=== PATIENT | female | born 1980 | race Caucasian/White ===

== ENCOUNTER 2019-03-11 17:05 | Outpatient (REF) | payer MEDICAID, SELFPAY ==
--- NOTE | 2019-03-11 14:40 | PAPFT_PTH ---
PATIENT: Shellie Schmid LOC: [facility] U#:[id number] AGE/SX: 38/F ROOM: RE03/11/[address]: MARIA FERNANDA Dorman : 1980 BED: DIS: 03/11/2019 SPEC #: [id number] RECD: 03/11/19 18:17 STATUS: ERICA REQ #: [id number] OLAF: 03/11/19 14:[address]: Pauline Wagner DEPT: [facility] Cytology RECD BY: Ronda Laureano Tissues: 1 - CX/ENDOCX FOR PAP SMEARS Procedures: PAP THIN PREP/UVM Screening HPV DNA PROBE Comments: [id number] (CHLAMYDIA/GC)
[2019-03-12 13:30] LABS: Chlamydia Result Negative; GC Result Negative; Specimen Description SEE COMMENTS
[2019-03-29 17:43] LABS: HPV High Risk type 16, PCR Negative (Negative); HPV High Risk type 18, PCR Negative (Negative); HPV other High Risk types, PCR Negative (Negative); Specimen Source Cervical
== END 2019-03-11 17:25 ==
LOC: LBN 17:05
PROVIDERS: PCP Nurse Practitioner Family; Visit Provider Nurse Practitioner Family
DX: N89.8 Other specified noninflammatory disorders of vagina (principal); Z11.3 Encounter for screening for infections with a predominantly sexual mode of transmission; Z12.4 Encounter for screening for malignant neoplasm of cervix; Z11.51 Encounter for screening for human papillomavirus (HPV)
CPT/HCPCS: 87491; 87591; 87624; 88142; 87480; 87510; 87660

== ENCOUNTER 2019-04-28 09:19 | Emergency (ER) | payer MEDICAID, SELFPAY ==
[2019-04-28 09:22] VITALS: BP 147/93; PULSE 104; RESP 18; TEMP 36.7; O2SAT 98
--- NOTE | 2019-04-28 09:29 | W.ED.GENAD ---
Discharge Plan Disposition Patient Disposition: HOME Condition: Stable Discharge Details Chief Complaint: RashLesion Clinical Impression: Cellulitis, Skin change Primary Care Provider: Pauline Wagner ED Provider: Pepper Mckee Home Meds and New Rx's Prescriptions: New cephalexin [Keflex] 500 mg capsule 500 mg PO QID Qty: 39 RF: 0 Continued lisdexamfetamine 40 mg capsule 40 mg PO DAILY MDD 40mg Qty: 30 RF: 0 Discharge Instructions Instructions: Cephalexin (By mouth), Cellulitis (ED), Acute Rash (ED), Swollen Joint (ED) Additional Instructions: Please return immediately to the emergency department if you develop any new or worsening symptoms or if you become otherwise concerned. It is extremely important that you call as soon as possible to make an appointment to be seen in follow-up for this visit by your primary care doctor. Referrals: Pauline Wagner, PODIATRY TEACHER [Primary Care Provider] - Medical Decision Making Shellie Schmid is a 38 y/o woman with history of alcohol use disorder, hyperlipidemia, ADHD on Vyvanse who presented to the emergency department with slightly painful rash to the left medial lower leg since yesterday after noting a spider near her, and also with skin changes to the right knee without trauma or knee pain. On exam patient is well and nontoxic appearing. Heart rate of 104 in triage, otherwise benign cardiopulmonary exam. Right knee with ecchymotic type skin changes, mild effusion, full range of motion the knee without pain, no tenderness to palpation of any aspect of the knee. Examination of the left knee shows scant effusion without pain or skin changes. No posterior calf tenderness to palpation bilaterally. Approximately 1.5 cm area of erythema to the left medial lower leg with very mild central ulceration. No drainage or edema. Area is mildly tenderness to palpation. DP pulses are intact and symmetric. No other rashes noted. Concern for possible cellulitis to the left medial lower leg, unclear etiology of right knee edema and skin changes. Concern for metabolic/lyte derangement, hematologic versus rheumatologic pathology, other. Tachycardia is borderline, EKG shows rate of 100, may be secondary to Vyvanse plus caffeinated energy drink this morning versus other. Exam/history is not consistent with sepsis, septic arthritis, PE, ACS, endocarditis, TEN, SJS, acute bony pathology. Doubt acute emergent life-threatening process, doubt DVT. Plan for screening labs. Labs nondiagnostic, nonactionable. Tick panel pending. At this time plan to start antibiotics for possible mild cellulitis left medial lower leg, plan for outpatient follow-up for prepatellar effusion, skin changes to the knee and also for cellulitis. Patient was symptoms unchanged upon reassessment, no further tachycardia. I had a lengthy discussion with the patient regarding return to emergency department precautions including red flags for which to return, home care, and importance of outpatient follow-up with her PCP this week. Patient verbalized understanding the plan was amenable. All questions were answered. Patient was placed on care management list to assist without patient follow-up. Patient was discharged home with clear plan for outpatient follow-up. Medical Records Medical records reviewed: Yes I reviewed the patient's medical records. Lab Data Lab results reviewed: Yes I reviewed the patient's lab results. Labs: Laboratory Tests Range/Units 04/28/19 04/28/19 04/28/19 10:04 10:04 10:04 WBC (4.4-10.8) k/cumm 6.82 RBC (4.00-5.20) m/cumm 4.40 Hgb (12.0-15.5) g/dL 16.2 H Hct (36.0-46.0) % 45.4 MCV (80-95) fL 103.2 H MCH (27.0-33.0) pg 36.8 H MCHC (32.0-36.0) g/dL 35.7 RDW (11.7-14.6) % 12.1 Plt Count (130-400) x1000/uL 284 MPV (8.0-11.0) fL 10.0 Immature Gran % 0.1 Neutrophils % 57.1 Lymphocytes % 27.7 Monocytes % 13.2 Eosinophils % 1.5 Basophils % 0.4 Absolute Neutrophils (1.2-6.7) k/cumm 3.89 Absolute Lymphocytes (1.2-3.4) k/cumm 1.89 Absolute Monocytes (0.11-0.7) k/cumm 0.90 H Absolute Eosinophils (0.0-0.7) k/cumm 0.10 Absolute Basophils (0.0-0.2) k/cumm 0.03 ESR (0-20) mm/hr 2 PT (9.3-11.0) sec 9.8 INR (0.9-1.1) 1.0 APTT (21.0-31.4) sec 26.5 D-Dimer (<500) ng/mlFEU Sodium (136-145) mmol/L Potassium (3.5-5.1) mmol/L Chloride (98-107) mmol/L Carbon Dioxide (21.0-32.0) mmol/L Anion Gap (3-11) mmol/L BUN (7-18) mg/dL Creatinine (0.55-1.02) mg/dL Estimated GFR/1.73 m2 (mL/min/1.73m2) Glucose (70-100) mg/dL Calcium (8.5-10.1) mg/dL Total Bilirubin (0.2-1.0) mg/dL AST (15-37) U/L ALT (14-59) U/L Alkaline Phosphatase (46-116) U/L C-Reactive Protein (0.0-0.3) mg/dL < 0.05 Total Protein (6.4-8.2) g/dL Albumin (3.4-5.0) g/dL TSH (0.36-3.74) uIU/mL 2.92 Urine Color (Yellow) Urine Clarity (Clear) Urine pH (5-8) Ur Specific [place] (1.005-1.025) Urine Protein (Negative) mg/dL Urine Ketones (Negative) mg/dL Urine Blood (Negative) Urine Nitrite (Negative) Urine Bilirubin (Negative) Urine Urobilinogen (Up TO 0.2) EU/dL Ur Leukocyte Esterase (Negative) Urine RBC (0-2) Urine WBC (0-5) HPF Ur Epithelial Cells (Negative) HPF Urine Crystals (Negative) HPF Urine Bacteria (Negative) HPF Urine Casts (Negative) LPF Urine Mucus (Negative) Ur Culture Indicated? Urine Glucose (Negative) mg/dL Range/Units 04/28/19 04/28/19 04/28/19 10:04 10:04 11:04 WBC (4.4-10.8) k/cumm RBC (4.00-5.20) m/cumm Hgb (12.0-15.5) g/dL Hct (36.0-46.0) % MCV (80-95) fL MCH (27.0-33.0) pg MCHC (32.0-36.0) g/dL RDW (11.7-14.6) % Plt Count (130-400) x1000/uL MPV (8.0-11.0) fL Immature Gran % Neutrophils % Lymphocytes % Monocytes % Eosinophils % Basophils % Absolute Neutrophils (1.2-6.7) k/cumm Absolute Lymphocytes (1.2-3.4) k/cumm Absolute Monocytes (0.11-0.7) k/cumm Absolute Eosinophils (0.0-0.7) k/cumm Absolute Basophils (0.0-0.2) k/cumm ESR (0-20) mm/hr PT (9.3-11.0) sec INR (0.9-1.1) APTT (21.0-31.4) sec D-Dimer (<500) ng/mlFEU 205 Sodium (136-145) mmol/L 139 Potassium (3.5-5.1) mmol/L 4.0 Chloride (98-107) mmol/L 104 Carbon Dioxide (21.0-32.0) mmol/L 26.5 Anion Gap (3-11) mmol/L 8.5 BUN (7-18) mg/dL 9 Creatinine (0.55-1.02) mg/dL 0.81 Estimated GFR/1.73 m2 (mL/min/1.73m2) >= 60.00 Glucose (70-100) mg/dL 104 H Calcium (8.5-10.1) mg/dL 9.0 Total Bilirubin (0.2-1.0) mg/dL 0.3 AST (15-37) U/L 29 ALT (14-59) U/L 35 Alkaline Phosphatase (46-116) U/L 73 C-Reactive Protein (0.0-0.3) mg/dL Total Protein (6.4-8.2) g/dL 7.5 Albumin (3.4-5.0) g/dL 4.2 TSH (0.36-3.74) uIU/mL Urine Color (Yellow) Yellow Urine Clarity (Clear) Clear Urine pH (5-8) 8.5 H Ur Specific [place] (1.005-1.025) 1.015 Urine Protein (Negative) mg/dL Negative Urine Ketones (Negative) mg/dL Negative Urine Blood (Negative) Trace-intact H Urine Nitrite (Negative) Negative Urine Bilirubin (Negative) Negative Urine Urobilinogen (Up TO 0.2) EU/dL 0.2 Ur Leukocyte Esterase (Negative) Negative Urine RBC (0-2) 3-5 H Urine WBC (0-5) HPF 0-2 Ur Epithelial Cells (Negative) HPF Moderate Urine Crystals (Negative) HPF Negative Urine Bacteria (Negative) HPF Few Urine Casts (Negative) LPF Negative Urine Mucus (Negative) Trace Ur Culture Indicated? No Urine Glucose (Negative) mg/dL Negative ECG Data Attestation: I personally reviewed and interpreted this ECG (s) as follows: Interpretation: EKG shows sinus rhythm at 100, normal axis, ST changes present on prior 2007 with T wave flattening V2 increased from prior, no STEMI, nondiagnostic EKG HPI General Mode of arrival: ambulatory. Date/Time Provider Initiated Documentation: 04/28/19 09:29. Limitations to Documentation: no limitations. Information obtained by: patient, RN notes reviewed and old records reviewed. HPI Narrative: Shellie Schmid is a 38 y/o woman with history of alcohol use disorder, hyperlipidemia, ADHD on Vyvanse presenting to the emergency department with rash. Patient reports that yesterday she was cleaning an [employer] apartment when she noticed a spider crawling away from her. She was wearing short pants and socks, and her ankles were exposed. Patient reports that she later noticed a red pamela on the inside of her left lower leg. Patient reports that redness seems to be increasing since yesterday, and she has mild pain at the site. Patient also reports that 2 days ago she noticed some color changes over her right knee. Patient reports that her knee has seemed to have increasing swelling since she first noticed the color changes, and the knee now appears bruised. She denies any trauma or pain. Has never had similar symptoms in the past. Patient reports that she drinks 1 or 2 alcoholic drinks every other night, although occasionally does binge drink. She reports that her drinking has been under control recently and has not increased. On review of systems, patient does note that she has had dark tarry stools for a long time. This has not been evaluated in the past. She denies any pain other than as above, any other rash, fevers, vomiting, diarrhea, cough, shortness of breath, numbness, weakness. Has been eating and drinking as usual. No recent travel, no recent illness. Patient is an every day smoker, she denies recreational drug use. Patient reports that she drank an energy drink this morning and also took her Vyvanse. Related Data Home Medications Medication Instructions Recorded Confirmed lisdexamfetamine 40 mg capsule 40 mg PO DAILY #30 cap MDD 40mg 04/02/19 04/28/19 cephalexin [Keflex] 500 mg PO QID #39 cap 04/28/19 Previous Rx's Medication Instructions Recorded lisdexamfetamine 40 mg capsule 40 mg PO DAILY #30 cap MDD 40mg 04/02/19 cephalexin [Keflex] 500 mg PO QID #39 cap 04/28/19 Allergies Allergy/AdvReac Type Severity Reaction Status Date / Time No Known Allergies Allergy Verified 03/11/19 13:50 General Stated Complaint: RashLesion JOSE: 4 Review of Systems Narrative: Constitutional: denies fevers Eyes: denies eye pain ENT: denies facial pain, dental pain, sore throat Cardiovascular: denies chest pain Respiratory: denies SOB, cough GI: denies abdominal pain, vomiting, diarrhea : denies flank pain MSK: denies back pain, neck pain, arthralgias, myalgias Skin: reports rashes as per HPI, right knee swelling as per HPI Neuro: denies headaches, numbness, weakness [facility] Medical History Abnormal Papanicolaou smear of cervix with positive human papilloma virus (HPV) test (Inactive) 4/15--LGSIL, +HPV 2/17--LGSIL, +HPV 4/17--Colposcopy=CINI 6/18--negative pap and hpv 9/19--Negative Pap, +HPV Alcohol use disorder (Inactive) Attention deficit hyperactivity disorder (ADHD) (Chronic) Cigarette smoker (Chronic) Depressive disorder (Inactive) Hyperlipidemia (Chronic) Family History (Updated 03/12/19 @ 09:22 by Yasmani Lloyd) Mother Essential hypertension Father Alcohol abuse Asthma Substance abuse Sister Depression Brother Alcohol abuse Substance abuse Daughter No problems noted. Daughter No problems noted. Maternal Grandfather , age 88 ALS (amyotrophic lateral sclerosis) Maternal Grandmother , age 67 Hyperlipidemia Cancer Paternal Grandfather , age 88 Prostate cancer Paternal Grandmother , age 89 Heart disease Sister No problems noted. Social History Smoking/Tobacco Use Status: Current every day Tobacco: How many years used: 17 Quit status: considering quitting Alcohol Intake: current Alcohol Intake frequency: 0-2 drinks per day Alcohol type: wine Drug use: Never Substance use type: does not use Caregiver/Support person: No Household members: children Housing: house Communication Needs: None Do you need help understanding health information?: Never Pets and animals: Yes Pets and animals: cat(s) and dog(s) Sexually active: Yes Do you think of yourself as: straight/heterosexual Current gender identity: female What is your relationship status?: never How often do you talk on the phone with friends or family?: twice per week How often do you get together with friends or relatives?: once per week How often do you attend spiritism or adventist services?: decline to answer Do you belong to any clubs or organized social groups?: no Panel score (0-1 are the most socially isolated patients): 1 What type of physical activity do you participate in: decline to answer Duration: < 15 minutes/day Frequency: decline to answer Cheryl/Jehovah'S Witness: Religious Special cheryl needs: No Seatbelt use: always Helmet use: Yes Helmet use: always Drive intox or ride w/intox airport shuttle driver: No Do you feel safe at home: Yes Do you feel safe in your relationship?: Yes Exam Narrative Exam Narrative: Constitutional: well and [id number], pleasant, conversing normally HENT: head atraumatic/normocephalic/normal inspection, mucous membranes moist, no intraoral lesions Eyes: conjunctiva normal, sclera normal, pupils 3mm b/l Neck: no stridor, normal ROM, trachea midline Chest: normal inspection Resp: normal work of breathing, LCTAB Cardio: normal rate, normal rhythm, no murmur appreciated GI: abdomen soft, non-tender, non-distended, rectal exam normal, hemoccult negative Back: normal inspection, no rash Skin: warm, dry, normal color, no rash Neuro: alert, not altered, grossly non-focal, normal tone Ext: Right knee with ecchymotic type skin changes, mild prepatellar effusion, full range of motion the knee without pain, no tenderness to palpation of any aspect of the knee including popliteal region. Examination of the left knee shows scant prepatellar effusion without pain with palpation, tenderness, or skin changes. No posterior calf tenderness to palpation bilaterally. Approximately 1.5 cm area of erythema to the left medial lower leg with very mild central ulceration. No drainage or edema. Area is mildly tenderness to palpation. DP pulses are intact and symmetric. No other rashes noted. Psych: normal mood, normal affect, normal behavior Course Vital Signs Vital signs: Vital Signs Temperature 36.7 C 04/28/19 09:22 Pulse 104 H 04/28/19 09:22 Respiratory Rate 18 04/28/19 09:22 Blood Pressure 147/93 H 04/28/19 09:22 Pulse Oximetry 98 04/28/19 09:22 Temperature 36.7 C 04/28/19 09:22 Temperature Source Skin 04/28/19 09:22 Pulse 104 H 04/28/19 09:22 Respiratory Rate 18 04/28/19 09:22 Blood Pressure 147/93 H 04/28/19 09:22 Blood Pressure Position Sitting 04/28/19 09:22 Pulse Oximetry 98 04/28/19 09:22 Oxygen Delivery Method Room Air 04/28/19 09:22 Oxygen Flow Rate 0 04/28/19 09:22
[2019-04-28 10:12] LABS: Abs Immature Grans 0.01 k/cumm (0.0-0.09); Absolute Basophil Count 0.03 k/cumm (0.0-0.2); Absolute Lymphocyte Count 1.89 k/cumm (1.2-3.4); Absolute Neutrophil Count 3.89 k/cumm (1.2-6.7); Basophils % 0.4; Eosinophils % 1.5; HCT 45.4 % (36.0-46.0); HGB 16.2 g/dL (12.0-15.5); Immature Grans % 0.1; Lymphocytes % 27.7; Mean Corp. HGB Concentration 35.7 g/dL (32.0-36.0); Mean Corpuscular Hemoglobin 36.8 pg (27.0-33.0); Mean Corpuscular Volume 103.2 fL (80-95); Monocytes % 13.2; Neutrophils % 57.1; Platelet Count 284 x1000/uL (130-400); RBC Distribution Width 12.1 % (11.7-14.6); White Blood Cell Count 6.82 k/cumm (4.4-10.8)
[2019-04-28 10:23] LABS: ALT 35 U/L (14-59); AST 29 U/L (15-37); Albumin 4.2 g/dL (3.4-5.0); Alkaline Phosphatase 73 U/L (46-116); Anion Gap 8.5 mmol/L (3-11); BUN 9 mg/dL (7-18); Bilirubin, Total 0.3 mg/dL (0.2-1.0); CO2 26.5 mmol/L (21.0-32.0); CREATININE 0.81 mg/dL (0.55-1.02); Chloride 104 mmol/L (98-107); Glucose 104 mg/dL (70-100); Sodium 139 mmol/L (136-145); Total Protein 7.5 g/dL (6.4-8.2)
[2019-04-28 10:33] LABS: PTT Activated 26.5 sec (21.0-31.4); Prothrombin Time 9.8 sec (9.3-11.0)
[2019-04-28 10:41] LABS: D-Dimer 205 ng/mlFEU (<500)
[2019-04-28 10:42] LABS: C-Reactive Protein < 0.05 mg/dL (0.0-0.3); TSH (W/Ref FT4) 2.92 uIU/mL (0.36-3.74)
[2019-04-28 10:53] LABS: ESR 2 mm/hr (0-20)
[2019-04-28 11:11] VITALS: BP 118/74; PULSE 94; RESP 18; TEMP 36.9; O2SAT 100
[2019-04-28 11:16] LABS: Bilirubin Negative (Negative); Blood Trace-intact (Negative); Clarity Clear (Clear); Glucose Negative (Negative); Ketones Negative (Negative); Leukocyte Esterase Negative (Negative); Nitrite Negative (Negative); Specific Gravity 1.015 (1.005-1.025); Urobilinogen 0.2 EU/dL (Up TO 0.2); pH 8.5 (5-8)
[2019-04-28] MEDS: Ibuprofen 400 MG TAB (11:16)
[2019-04-28 11:27] LABS: Bacteria Few HPF (Negative); C & S Indicated? No; Casts Negative LPF (Negative); Crystals Negative HPF (Negative); Epithelial Cells Moderate HPF (Negative); Mucus Trace (Negative); WBC 0-2 HPF (0-5)
[2019-04-28] MEDS: Cephalexin 500 MG CAP PO (12:03)
[2019-04-28 12:13] VITALS: BP 116/72; PULSE 87; RESP 18; TEMP 37; O2SAT 100
[2019-04-29 10:10] LABS: Lyme Ab w Rflx to Lyme Confirm Negative
[2019-04-30 22:17] LABS: Anaplasma phagocytophilum Negative (Negative); B. miyamotoi PCR Negative (Negative); Babesia divergens/MO-1 Negative (Negative); Babesia duncani Negative (Negative); Babesia microti Negative (Negative); Ehrlichia chaffeensis Negative (Negative); Ehrlichia ewingii/canis Negative (Negative); Ehrlichia muris eauclairensis Negative (Negative)
== END 2019-04-28 12:23 | disposition home or self-care (01) ==
PROVIDERS: Emergency Provider Student in an Organized Health Care Education/Training Program; PCP Nurse Practitioner Family
DX: L03.116 Cellulitis of left lower limb (principal); R23.4 Changes in skin texture
CPT/HCPCS: 36415; 80053; 81025; 85652; 87798; 93005; 99284; 81003; 81015; 84443; 85025; 85379; 85610; 85730; 86140; 86618; 93010

== ENCOUNTER 2019-08-02 14:26 | Emergency (ER) | payer MEDICAID, SELFPAY ==
[2019-08-02 14:30] VITALS: BP 149/108; PULSE 104; RESP 20; TEMP 36.6; O2SAT 99
--- NOTE | 2019-08-02 14:54 | ED.GENADUL_ITS ---
Discharge Plan Disposition Patient Disposition: HOME Condition: Improving Discharge Details Chief Complaint: Chest/Rib Clinical Impression: Acute bronchitis with bronchospasm Primary Care Provider: Pauline Wagner ED Provider: Eladio Staton Home Meds and New Rx's Prescriptions: No Action bupropion HCl 300 mg tablet extended release 24 hr 300 mg PO DAILY Qty: 90 RF: 4 lisdexamfetamine 40 mg capsule 40 mg PO DAILY MDD 40mg Qty: 30 RF: 0 Discharge Instructions Instructions: Acute Bronchitis (ED) Medical Decision Making 39-year-old female presents from home with days of respiratory illness including cough, congestion, production of sputum. She 2 days ago reports right sided chest discomfort that is worse with breathing and fairly abrupt in onset. She does have hormone impregnated IUD. She is afebrile, oxygenating normally, exam reveals right midlung field rhonchi/expiratory wheeze. She is slightly tachycardic and hypertensive. Differential diagnosis would include bronchitis, pneumonia, must exclude PE. Patient given 1 L of fluid, referred for chest x- ray and blood work. Labs with reassuring CBC and chemistries, d-dimer negative at 256. Consistent with bronchitis and mild bronchospasm. Discussed with her cessation of tobacco use or at least minimizing. She is given an albuterol inhaler to be used during times of illness and placed on a course of antibiotics. Lab Data Lab results reviewed: Yes I reviewed the patient's lab results. Labs: Laboratory Results - last 24 hr 08/02/19 08/02/19 15:45 15:45 WBC 9.66 RBC 4.39 Hgb 15.9 H Hct 45.4 MCV 103.4 H MCH 36.2 H MCHC 35.0 RDW 12.5 Plt Count 269 MPV 10.0 Immature Gran % 0.2 Neutrophils % 72.8 Lymphocytes % 18.3 Monocytes % 8.2 Eosinophils % 0.3 Basophils % 0.2 Absolute Neutrophils 7.03 H Absolute Lymphocytes 1.77 Absolute Monocytes 0.79 H Absolute Eosinophils 0.03 Absolute Basophils 0.02 Sodium 141 Potassium 3.7 Chloride 103 Carbon Dioxide 26.5 Anion Gap 11.5 H BUN 14 Creatinine 0.81 Estimated GFR/1.73 m2 >= 60.00 Glucose 98 Calcium 8.7 Total Bilirubin 0.3 AST 20 ALT 23 Alkaline Phosphatase 85 Total Protein 7.3 Albumin 4.1 HPI General Mode of arrival: ambulatory . Date/Time Provider Initiated Documentation: 08/02/19 14:49 . Limitations to Documentation: no limitations . Information obtained by: patient . History of Present Illness 39 year old F presents to the emergency department with the chief complaint of Cough, congestion, right-sided chest pain, Quality is described as aching, and is localized to the right. Patient reports no radiation. Patient started experiencing this day(s) and it has been intermittent. No relieving factors improve symptom(s), Other factors that worsen symptoms (Deep breath) . Patient notes cough and other (Production of sputum). Patient did receive the following treatments prior to arrival, NSAID Related Data Home Medications Medication Instructions Recorded Confirmed bupropion HCl 300 mg 24 hr tablet, 300 mg PO DAILY #90 tab 05/31/19 extended release lisdexamfetamine 40 mg capsule 40 mg PO DAILY #30 cap MDD 40mg 07/30/19 08/02/19 Previous Rx's Medication Instructions Recorded bupropion HCl 300 mg 24 hr tablet, 300 mg PO DAILY #90 tab 05/31/19 extended release lisdexamfetamine 40 mg capsule 40 mg PO DAILY #30 cap MDD 40mg 07/30/19 Allergies Allergy/AdvReac Type Severity Reaction Status Date / Time No Known Allergies Allergy Verified 04/30/19 13:48 General Stated Complaint: Chest/Rib JOSE: 3 Review of Systems Narrative: 1 pack a day smoker. No inhalers. No travel. Denies lower extremity pain or swelling. [facility] Medical History Abnormal Papanicolaou smear of cervix with positive human papilloma virus (HPV) test (Inactive) 15--LGSIL, +HPV 2/17--LGSIL, +HPV 4/17--Colposcopy=CINI 6/18--negative pap and hpv 9/19--Negative Pap, +HPV Alcohol use disorder (Inactive) Attention deficit hyperactivity disorder (ADHD) (Chronic) Cigarette smoker (Chronic) Depressive disorder (Inactive) Hyperlipidemia (Chronic) Family History Mother Essential hypertension Father Alcohol abuse Asthma Substance abuse Sister Depression Brother Alcohol abuse Substance abuse Daughter No problems noted. Daughter No problems noted. Maternal Grandfather , age 88 ALS (amyotrophic lateral sclerosis) Maternal Grandmother , age 67 Hyperlipidemia Cancer Paternal Grandfather , age 88 Prostate cancer Paternal Grandmother , age 89 Heart disease Sister No problems noted. Social History Smoking/Tobacco Use Status: Current every day Tobacco: How many years used: 17 Quit status: considering quitting Alcohol Intake: current Alcohol Intake frequency: 0-2 drinks per day Alcohol type: wine Drug use: Never Substance use type: does not use Caregiver/Support person: No Household members: children Housing: house Communication Needs: None Do you need help understanding health information?: Never Pets and animals: Yes Pets and animals: cat(s) and dog(s) Sexually active: Yes Do you think of yourself as: straight/heterosexual Current gender identity: female What is your relationship status?: never How often do you talk on the phone with friends or family?: twice per week How often do you get together with friends or relatives?: once per week How often do you attend anabaptism or mormonism services?: decline to answer Do you belong to any clubs or organized social groups?: no Panel score (0-1 are the most socially isolated patients): 1 What type of physical activity do you participate in: decline to answer Duration: < 15 minutes/day Frequency: decline to answer Cheryl/Religious: Muslim Special cheryl needs: No Seatbelt use: always Helmet use: Yes Helmet use: always Drive intox or ride w/intox national dedicated truck driver: No Do you feel safe at home: Yes Do you feel safe in your relationship?: Yes Exam Narrative Exam Narrative: GEN: awake, alert, oriented 3. Pleasant, well groomed, interactive. HEAD: Normocephalic, atraumatic ENT: Mucous membranes moist, oropharynx unremarkable, External ear exam unremarkable EYES: PERRL, EOMI NECK: Full ROM, no JANE, no menigismus CHEST/RESP: Nontender, right side midlung field rhonchi with wheeze CARDIOVASCULAR: Borderline tachycardia, RRR, no murmur, rub laura. 2+ Rad pulse bilateral ABDOMEN: Soft, nontender, no mass. +Bowel sounds EXT: Full ROM, no edema, no rash Neuro: Grossly normal neurologic exam, conversant, interactive. Psych: Speech fluent, thoughts congruent, affect normal Course Vital Signs Vital signs: Vital Signs Temperature 36.6 C 08/02/19 14:30 Pulse 104 H 08/02/19 14:30 Respiratory Rate 20 08/02/19 14:30 Blood Pressure 149/108 H 08/02/19 14:30 Pulse Oximetry 99 08/02/19 14:30 Temperature 36.6 C 08/02/19 14:30 Temperature Source Skin 08/02/19 14:30 Pulse 104 H 08/02/19 14:30 Respiratory Rate 20 08/02/19 14:30 Blood Pressure 149/108 H 08/02/19 14:30 Blood Pressure Position Sitting 08/02/19 14:30 Pulse Oximetry 99 08/02/19 14:30 Oxygen Delivery Method Room Air 08/02/19 14:30 Oxygen Flow Rate 0 08/02/19 14:30 Pain Level 2 08/02/19 14:30
[2019-08-02] MEDS: Normal Saline 1,000 ML 1000 ML IV (15:53)
[2019-08-02 15:59] LABS: Abs Immature Grans 0.02 k/cumm (0.0-0.09); Absolute Basophil Count 0.02 k/cumm (0.0-0.2); Absolute Eosinophil Count 0.03 k/cumm (0.0-0.7); Absolute Lymphocyte Count 1.77 k/cumm (1.2-3.4); Absolute Monocyte Count 0.79 k/cumm (0.11-0.7); Absolute Neutrophil Count 7.03 k/cumm (1.2-6.7); Basophils % 0.2; Eosinophils % 0.3; HCT 45.4 % (36.0-46.0); HGB 15.9 g/dL (12.0-15.5); Immature Grans % 0.2 %; Lymphocytes % 18.3; Mean Corpuscular Hemoglobin 36.2 pg (27.0-33.0); Mean Corpuscular Volume 103.4 fL (80-95); Monocytes % 8.2; Neutrophils % 72.8; Platelet Count 269 x1000/uL (130-400); RBC 4.39 m/cumm (4.00-5.20); RBC Distribution Width 12.5 % (11.7-14.6); White Blood Cell Count 9.66 k/cumm (4.4-10.8)
[2019-08-02 16:14] LABS: ALT 23 U/L (14-59); AST 20 U/L (15-37); Albumin 4.1 g/dL (3.4-5.0); Alkaline Phosphatase 85 U/L (46-116); Anion Gap 11.5 mmol/L (3-11); BUN 14 mg/dL (7-18); Bilirubin, Total 0.3 mg/dL (0.2-1.0); CO2 26.5 mmol/L (21.0-32.0); CREATININE 0.81 mg/dL (0.55-1.02); Calcium 8.7 mg/dL (8.5-10.1); Chloride 103 mmol/L (98-107); Glucose 98 mg/dL (74-106); Potassium 3.7 mmol/L (3.5-5.1); Sodium 141 mmol/L (136-145); Total Protein 7.3 g/dL (6.4-8.2)
--- NOTE | 2019-08-02 16:21 | DI.RAD_ITS ---
EXAM: XR CHEST 2V PA LATERAL CLINICAL HISTORY: R pain, cough. TECHNIQUE: 2D digital imaging was performed. COMPARISON: No exams were available for comparison FINDINGS: LUNGS: Clear. No pleural abnormality seen. HEART: Normal. MEDIASTINUM: Normal. OTHER FINDINGS:Normal. BONE:Normal. IMPRESSION: No acute pulmonary findings.
[2019-08-02 16:30] LABS: D-Dimer 256 ng/mlFEU (<500)
--- NOTE | 2019-08-02 16:43 | DI.VRAD_ITS ---
PROCEDURE INFORMATION: Exam: XR Chest, 2 Views Exam date and time: 08/02/2019 4:22 PM Age: 39 years old Clinical indication: Cough; Right-sided chest pain TECHNIQUE: Imaging protocol: XR of the chest Views: 2 views. COMPARISON: No relevant prior studies available. FINDINGS: Lungs: Unremarkable. No consolidation. Pleural space: Unremarkable. No pleural effusion. No pneumothorax. Heart/Mediastinum: Unremarkable. No cardiomegaly. Bones/joints: Unremarkable. IMPRESSION: No acute findings. Dictated and Authenticated by: Ayo Rhodes MD. Ordering:GEOFFREY Hendricks MD
[2019-08-02] MEDS: Albuterol HFA 8 GM 60 PUFF INH IH (17:11)
[2019-08-02] MEDS: Ketorolac 15 MG/ML VIAL IVP (17:12)
[2019-08-02 17:14] VITALS: BP 145/90; PULSE 97; RESP 18; TEMP 36.6; O2SAT 100
== END 2019-08-02 17:15 | disposition home or self-care (01) ==
PROVIDERS: Emergency Provider Emergency Medicine; PCP Nurse Practitioner Family
DX: J20.9 Acute bronchitis, unspecified (principal); R07.81 Pleurodynia; F17.210 Nicotine dependence, cigarettes, uncomplicated
CPT/HCPCS: 36415; 80053; 96361; 96374; 99284; 71046; 85025; 85379; J1885

== ENCOUNTER 2019-11-09 16:02 | Outpatient (REF) | payer MEDICAID, SELFPAY ==
[2019-11-09 16:46] LABS: Clarity Sl Cloudy (Clear)
[2019-11-09 16:47] LABS: Specific Gravity 1.025 (1.005-1.025)
[2019-11-09 16:52] LABS: Bacteria Negative HPF (Negative); Casts Negative LPF (Negative); Crystals Many Amorphous HPF (Negative); Epithelial Cells Negative HPF (Negative); Mucus Moderate (Negative); RBC 20-50 HPF (0-2); WBC 20-50 HPF (0-5)
[2019-11-09 16:53] LABS: C & S Indicated? Yes
== END 2019-11-09 16:22 ==
LOC: LBN 16:02
PROVIDERS: PCP Nurse Practitioner Family; Visit Provider Nurse Practitioner Family
DX: N39.0 Urinary tract infection, site not specified (principal)
CPT/HCPCS: 87077; 81003; 81015; 87086; 87186

== ENCOUNTER 2020-10-02 15:51 | Outpatient (REF) | payer MEDICAID, SELFPAY ==
--- NOTE | 2020-10-02 14:45 | PAPFT_PTH ---
PATIENT: Shellie Schmid LOC: [facility] U#:[id number] AGE/SX: 40/F ROOM: RE10/02/[address]: MARIA FERNANDA Dorman : 1980 BED: DIS: 10/02/2020 SPEC #: [id number] RECD: 10/03/20 12:57 STATUS: ERICA REQ #: [id number] OLAF: 10/02/20 14:[address]: Pauline Wagner DEPT: [facility] Cytology RECD BY: Ronda Laureano Tissues: 1 - CX/ENDOCX FOR PAP SMEARS Procedures: PAP THIN PREP/UVM Screening HPV DNA PROBE Comments: [id number] (CHLAMYDIA/GC)
[2020-10-04 15:01] LABS: Chlamydia Result Negative (Negative); GC Result Negative (Negative)
== END 2020-10-02 15:52 | disposition home or self-care (01) ==
LOC: LBN 15:51
PROVIDERS: PCP Nurse Practitioner Family; Visit Provider Nurse Practitioner Family
DX: Z11.3 Encounter for screening for infections with a predominantly sexual mode of transmission (principal); Z12.4 Encounter for screening for malignant neoplasm of cervix; R87.611 Atypical squamous cells cannot exclude high grade squamous intraepithelial lesion on cytologic smear of cervix (ASC-H); Z11.51 Encounter for screening for human papillomavirus (HPV); R87.810 Cervical high risk human papillomavirus (HPV) DNA test positive
CPT/HCPCS: 87491; 87591; 88142; 87624

== ENCOUNTER 2020-11-28 12:13 | Outpatient (REF) | payer MEDICAID, SELFPAY ==
--- NOTE | 2020-11-28 11:55 | ENDO_PTH ---
PATIENT: Shellie Schmid LOC: [facility] U#:[id number] AGE/SX: 40/F ROOM: RE11/28/[address]: Noemy Villeda DO : 1980 BED: DIS: 11/28/2020 SPEC #: [id number] RECD: 11/28/20 12:57 STATUS: ERICA RESweta #: [id number] OLAF: 11/28/20 11:[address]: Noemy Villeda DEPT: Surgical Specimen RECD BY: Ronda Laureano ENTERED: 11/28/20 12:58 SP TYPE: Endo OTHR DR: MARIA FERNANDA Dorman Tissues: 1 - ENDOCERVICAL BX/CURRETTE 2 - CERVICAL BIOPSY Procedures: GROSS AND MICRO LEVEL 4 Comments: [id number]
== END 2020-11-28 12:14 | disposition home or self-care (01) ==
LOC: LBN 12:13
PROVIDERS: PCP Nurse Practitioner Family; Visit Provider Obstetrics & Gynecology
DX: R87.610 Atypical squamous cells of undetermined significance on cytologic smear of cervix (ASC-US) (principal); R87.810 Cervical high risk human papillomavirus (HPV) DNA test positive; N87.9 Dysplasia of cervix uteri, unspecified
CPT/HCPCS: 88305

== ENCOUNTER 2021-04-05 18:38 | Outpatient (REF) | payer MEDICAID, SELFPAY ==
[2021-04-05 18:04] LABS: Bilirubin Negative (Negative); Blood Large (Negative); Clarity Cloudy (Clear); Glucose Negative (Negative); Ketones Negative (Negative); Leukocyte Esterase Large (Negative); Nitrite Negative (Negative); pH 7.5 (5-8)
[2021-04-05 18:13] LABS: Bacteria Many HPF (Negative); C & S Indicated? Yes; Casts Negative LPF (Negative); Crystals Negative HPF (Negative); Epithelial Cells Few HPF (Negative); Mucus Negative (Negative); Other Cells Few Renal (Negative); RBC >50 HPF (0-2); WBC >50 HPF (0-5)
== END 2021-04-05 18:39 | disposition home or self-care (01) ==
LOC: LBN 18:38
PROVIDERS: PCP Nurse Practitioner Family; Visit Provider Nurse Practitioner Family
DX: N39.0 Urinary tract infection, site not specified (principal)
CPT/HCPCS: 81003; 81015; 87086

== ENCOUNTER 2021-04-16 19:25 | Outpatient (REF) | payer MEDICAID, SELFPAY ==
[2021-04-18 11:36] LABS: COVID-19 RT-PCR UVMMC Result Negative (Negative)
== END 2021-04-16 19:26 | disposition home or self-care (01) ==
LOC: LBN 19:25
PROVIDERS: PCP Nurse Practitioner Family; Visit Provider Family Medicine
DX: Z20.822 Contact with and (suspected) exposure to COVID-19 (principal); H92.02 Otalgia, left ear; J06.9 Acute upper respiratory infection, unspecified
CPT/HCPCS: U0003

== ENCOUNTER 2021-10-17 16:09 | Outpatient (REF) | payer MEDICAID, SELFPAY ==
--- NOTE | 2021-10-17 14:45 | PAPFT_PTH ---
PATIENT: Shellie Schmid LOC: [facility] U#:[id number] AGE/SX: 41/F ROOM: RE10/17/[address]: MARIA FERNANDA Dorman : 1980 BED: DIS: 10/17/2021 SPEC #: [id number] RECD: 10/17/21 17:44 STATUS: ERICA REQ #: [id number] OLAF: 10/17/21 14:[address]: Pauline Wagner [facility] Cytology RECD BY: Ronda Laureano Tissues: 1 - CX/ENDOCX FOR PAP SMEARS Procedures: PAP THIN PREP/UVM Screening HPV DNA PROBE Comments: [id number]
== END 2021-10-17 16:10 | disposition home or self-care (01) ==
LOC: LBN 16:09
PROVIDERS: PCP Nurse Practitioner Family; Visit Provider Nurse Practitioner Family
DX: N76.0 Acute vaginitis (principal); Z12.4 Encounter for screening for malignant neoplasm of cervix; Z11.51 Encounter for screening for human papillomavirus (HPV)
CPT/HCPCS: 88142; 87480; 87510; 87624; 87660

== ENCOUNTER 2021-11-16 16:04 | Outpatient (REF) | payer MEDICAID, SELFPAY ==
[2021-11-18 14:35] LABS: COVID-19 RT-PCR UVMMC Result Negative (Negative)
== END 2021-11-16 16:05 | disposition home or self-care (01) ==
LOC: LBN 16:04
PROVIDERS: PCP Nurse Practitioner Family; Visit Provider Nurse Practitioner Family
DX: Z20.822 Contact with and (suspected) exposure to COVID-19 (principal); Z01.818 Encounter for other preprocedural examination
CPT/HCPCS: U0003

== ENCOUNTER → 2021-12-24 02:17 | Outpatient (CLI) | payer MEDICAID, SELFPAY ==
--- NOTE | 2021-12-24 16:15 | DI.MAMMO_ITS ---
Exam(s) MAMMO SCREENING EXAM: MAMMO SCREENING CLINICAL HISTORY: screening. TECHNIQUE: Bilateral full field digital CC and MLO mammographic images were obtained with 3D tomosyn thesis and utilizing computer aided detection (CAD). COMPARISON: Prior outside mammograms were reviewed, the most recent being 01/27/2020. This patient underwent ultrasound-guided core biopsy of a nodule at 2 o'clock position of the left br east performed on 03/02/20, apparently negative for malignancy. FINDINGS: The fibroglandular tissue pattern is again noted be moderately dense, this somewhat decreasing the se nsitivity mammogram for finding hidden under lesions. Biopsy marker clip is noted in the peripherally located 2 clock position nodule in the left breast le ft axillary tail region There are no new spiculated masses nor malignant appearing microcalcification groups. There is no significant architectural distortion nor skin thickening-retraction. IMPRESSION: Stable appearance of biopsied nodule in the peripheral aspect of the left upper outer quadrant, uncha nged from December 2019. This underwent biopsy on 03/02/2020. Apparently negative. BI-RADS Category 2 - Benign Findings Breast Density - Category C - Heterogeneously dense Breast density Category C or D implies that the patient has dense breast tissue. Dense breast tissue can make it harder to find cancer on a mammogram. Dense breast tissue is also associated with an incr eased risk of breast cancer. This information about the result of the mammogram report was provided to the patient to raise their awareness. Use this report when you speak with the patient about their risks for breast cancer, which includes their family history. At that time, you may recommend additional screening tests (Ultrasoun d or MRI) as these tests may add significant information. A negative radiographic report should not delay biopsy if a dominant or clinically suspicious mass is present. Up to ten percent of cancers are not identified on mammography. A negative report may reinforce clinical impression. Adenosis and dense breasts may obscure an underlying neoplasm. False positive reports average 6 to 10%. Patient will receive a letter notifying them of these results.
== END ==
PROVIDERS: PCP Nurse Practitioner Family; Visit Provider Nurse Practitioner Family
DX: Z12.31 Encounter for screening mammogram for malignant neoplasm of breast (principal); Z98.890 Other specified postprocedural states; N60.82 Other benign mammary dysplasias of left breast
CPT/HCPCS: 77063; 77067

== ENCOUNTER 2022-01-26 14:04 | Emergency (ER) | payer MEDICAID, SELFPAY ==
[2022-01-26 14:14] VITALS: BP 132/91; PULSE 100; RESP 18; TEMP 36.5; O2SAT 97
--- NOTE | 2022-01-26 14:49 | ED.GENADUL_ITS ---
Discharge Plan Disposition Patient Disposition: HOME Condition: Stable Discharge Details Clinical Impression: Depressive disorder Primary Care Provider: Pauline Wagner ED Provider: Gage Aparicio Home Meds and New Rx's Prescriptions: Continued Mirena 20 mcg/24 hours (6 yrs) 52 mg intrauterine device 1 device intrauterine ONCE lisdexamfetamine 50 mg capsule 50 mg PO DAILY MDD 1 pill Qty: 28 0RF fluconazole 150 mg tablet 150 mg PO Q3D 0 Days Qty: 2 0RF Rx Instructions: may repeat second dose 72 hrs after first dose if symptoms persist metronidazole 500 mg tablet 500 mg PO BID Qty: 14 0RF Rx Instructions: Take 1 tablet twice a day for 7 days Discharge Instructions Additional Instructions: Follow up with [facility] try to limit alcohol to 1-2 drinks daily if you feel more ill or have worsening thoughts of self harm return to the emergency department Discharge Data Discharge Date/Time-TO BE ENTERED AT DEPARTURE: 01/27/22 01:24 Medical Decision Making <JUAN Harley - Last Filed: 01/26/22 15:44> This is a 41-year-old female presenting for increasing anxiety, depression, vague SI without a specific plan reporting decreased p.o. intake over the past 6 days. Also concerned that she could have had COVID a couple weeks ago. Clinically she appears anxious but no acute distress. Plan is to place her on a interim care, [facility], and request a mental health evaluation. First will obtain IV access, give IV fluid and routine screening laboratory values. Patient certainly could have an electrolyte abnormality, KRYS, etc. given her p.o. intake. We will also obtain a COVID swab as she may require inpatient hospitalization, currently has no acute symptoms consistent with COVID. Patient and mother are comfortable with this plan. She is calm and cooperative. Medical Records Medical records reviewed: Yes I reviewed the patient's medical records. <Mendel Napoles NP - Last Filed: 01/27/22 10:39> This is a 41-year-old female presenting for increasing anxiety, depression, vague SI without a specific plan reporting decreased p.o. intake over the past 6 days. Also concerned that she could have had COVID a couple weeks ago. Clinically she appears anxious but no acute distress. Plan is to place her on a interim care, [facility], and request a mental health evaluation. First will obtain IV access, give IV fluid and routine screening laboratory values. Patient certainly could have an electrolyte abnormality, KRYS, etc. given her p.o. intake. We will also obtain a COVID swab as she may require inpatient hospitalization, currently has no acute symptoms consistent with COVID. Patient and mother are comfortable with this plan. She is calm and cooperative. 1600-care assumed from JUAN Arana. Please see his note for initial presentation assessment and plan of care. Labs are reviewed and show elevated hemoglobin hematocrit otherwise nondiagnostic, CMP is unremarkable except for elevation of AST and ALT with AST being greater which does fit patient's clinical scenario of significant alcohol use with binge drinking that she reports. TSH is within normal limits, patient is COVID-negative, urinalysis does show trace ketones and trace lysed blood otherwise unremarkable. Patient's urinalysis tox screen did show amphetamines and THC otherwise negative. Patient's alcohol level was 173. Did discuss with patient and mother since she is here voluntarily regards to standard timeframe for alcohol clearance and mental health evaluation that will occur after she reaches 0. After discussion of risks patient is agreeable to staying in the emergency department until alcohol level is appropriate for mental health. Patient does state that she is having suicidal ideations and has thought of different ways of killing herself but without exact plan but states she has thought about shooting herself, hang herself, or slitting her wrists. Patient is otherwise calm and cooperative and seeking voluntary care. We will continue to monitor patient,. Did discuss with patient use of some Benadryl and hydroxyzine to help with anxiety. Upon waiting for patient to become medically clear she did endorse some headache. Patient given some Toradol. Headache did return later so we will give oral ibuprofen and acetaminophen to see if this helps better Did reassess patient's alcohol level which was noted to be 11. We will contact mental health given faster alcohol clearance to perform mental health evaluation for final disposition. <Gage Aparicio MD - Last Filed: 01/27/22 01:01> This is a 41-year-old female presenting for increasing anxiety, depression, vague SI without a specific plan reporting decreased p.o. intake over the past 6 days. Also concerned that she could have had COVID a couple weeks ago. Clinically she appears anxious but no acute distress. Plan is to place her on a interim care, [facility], and request a mental health evaluation. First will obtain IV access, give IV fluid and routine screening laboratory values. Patient certainly could have an electrolyte abnormality, KRYS, etc. given her p.o. intake. We will also obtain a COVID swab as she may require inpatient hospitalization, currently has no acute symptoms consistent with COVID. Patient and mother are comfortable with this plan. She is calm and cooperative. 1600-care assumed from JUAN Arana. Please see his note for initial presentation assessment and plan of care. Labs are reviewed and show elevated hemoglobin hematocrit otherwise nondiagnostic, CMP is unremarkable except for elevation of AST and ALT with AST being greater which does fit patient's clinical scenario of significant alcohol use with binge drinking that she reports. TSH is within normal limits, patient is COVID-negative, urinalysis does show trace ketones and trace lysed blood otherwise unremarkable. Patient's urinalysis tox screen did show amphetamines and THC otherwise negative. Patient's alcohol level was 173. Did discuss with patient and mother since she is here voluntarily regards to standard timeframe for alcohol clearance and mental health evaluation that will occur after she reaches 0. After discussion of risks patient is agreeable to staying in the emergency department until alcohol level is appropriate for mental health. Patient does state that she is having suicidal ideations and has thought of different ways of killing herself but without exact plan but states she has thought about shooting herself, hang herself, or slitting her wrists. Patient is otherwise calm and cooperative and seeking voluntary care. We will continue to monitor patient,. Did discuss with patient use of some Benadryl and hydroxyzine to help with anxiety. Upon waiting for patient to become medically clear she did endorse some headache. Patient given some Toradol. Headache did return later so we will give oral ibuprofen and acetaminophen to see if this helps better Did reassess patient's alcohol level which was noted to be 11. We will contact mental health given faster alcohol clearance to perform mental health evaluation for final disposition. Patient seen by [facility] and cleared to go home, will check in with her later today, denies si/hi on my exam and is clinically sober. Stable for d/c, return precautions given HPI <JUAN Harley - Last Filed: 01/26/22 15:44> General Mode of arrival: ambulatory . Date/Time Provider Initiated Documentation: 01/26/22 14:23 . Limitations to Documentation: no limitations . Information obtained by: patient and family . HPI Narrative: This is a 41-year-old female who reports past medical history of anxiety, depression, current smoker, hyperlipidemia, presenting to the ER for multiple concerns including worsening anxiety, depression, vague SI with no specific plan, has not had any oral intake in the past 6 days or so, all exacerbated by both of her children leaving the household and her relapsed with drugs. She also reports in general simply not feeling well, she states that maybe a couple weeks ago she was concerned that she could have had COVID. Unfortunately she is a rather vague and poor historian. She denies any active medical concerns or complaints, denies any pain. Patient does report to alcohol use today, denies any history of alcohol withdrawal Related Data Home Medications Medication Instructions Recorded Confirmed levonorgestrel 20 mcg/24 hours (7 1 device intrauterine ONCE 10/05/20 01/26/22 yrs) 52 mg intrauterine device (Mirena) lisdexamfetamine 50 mg capsule 50 mg PO DAILY #28 caps 10/17/21 01/26/22 fluconazole 150 mg tablet 150 mg PO Q3D 2 doses #2 tabs 10/18/21 01/26/22 metronidazole 500 mg tablet 500 mg PO BID #14 tabs 10/18/21 01/26/22 Previous Rx's Medication Instructions Recorded lisdexamfetamine 50 mg capsule 50 mg PO DAILY #28 caps 10/17/21 fluconazole 150 mg tablet 150 mg PO Q3D 2 doses #2 tabs 10/18/21 metronidazole 500 mg tablet 500 mg PO BID #14 tabs 10/18/21 Allergies Allergy/AdvReac Type Severity Reaction Status Date / Time No Known Allergies Allergy Verified 01/26/22 14:19 General Stated Complaint: PsychEval JOSE: 2 Review of Systems <JUAN Harley - Last Filed: 01/26/22 15:44> Constitutional Constitutional: Reports fatigue, Denies fever(s) and Denies headache(s) Eyes Eyes: Denies change in vision ENT Ears, Nose, Mouth, and Throat: Denies headache(s) Cardiovascular Cardiovascular: Denies chest pain and Reports dyspnea (A couple of weeks ago) Respiratory Respiratory: Reports cough (smoker's cough, chronic) and Reports dyspnea (A couple of weeks ago) Gastrointestinal Gastrointestinal: Denies abdominal pain, Reports nausea and Denies vomiting Genitourinary Genitourinary: Denies dysuria Musculoskeletal Musculoskeletal: Denies back pain Integumentary/Breasts Skin/Breast: Denies rash Neurologic Neurologic: Denies headache(s) Psychiatric Psychiatric: Reports anxiety, Reports depression, Denies homicidal ideation and Reports suicidal ideation Endocrine Endocrine: Reports fatigue PFSH <JUAN Harley - Last Filed: 01/26/22 15:44> All Active Problems (Updated 01/26/22 @ 23:16 by Mendel Napoles NP) Hyperlipidemia (Chronic) Depressive disorder (Chronic) Attention deficit hyperactivity disorder (ADHD) (Chronic) Cigarette smoker (Chronic) IUD surveillance (Chronic) Mirena IUD inserted 04/16/2018 Medical History Alcohol use disorder Surgical History No significant past surgical history Family History Mother Essential hypertension Father Alcohol abuse Asthma Substance abuse Sister Depression Brother Alcohol abuse Substance abuse Daughter No problems noted. Daughter No problems noted. Maternal Grandfather , age 88 ALS (amyotrophic lateral sclerosis) Maternal Grandmother , age 67 Hyperlipidemia Cancer Paternal Grandfather , age 88 Prostate cancer Paternal Grandmother , age 89 Heart disease Sister No problems noted. Social History Smoking/Tobacco Use Status: Current-Occasional Tobacco Type: cigarettes Tobacco: How many years used: 20 Quit status: not considering quitting Second Hand Exposure: Yes Smoking risk assessment performed?: Yes Alcohol Intake: current Alcohol Intake frequency: a few times a week Alcohol type: wine Substance use type: marijuana Caregiver/Support person: No Household members: spouse and children Housing: house Communication Needs: None Do you need help understanding health information?: Never Pets and animals: Yes Pets and animals: cat(s) and dog(s) Sexually active: Yes Do you think of yourself as: straight/heterosexual Current gender identity: female What is your relationship status?: How often do you talk on the phone with friends or family?: three or more times per week How often do you get together with friends or relatives?: once per week How often do you attend quaker or gnosticism services?: 4 or more times per year Do you belong to any clubs or organized social groups?: no Panel score (0-1 are the most socially isolated patients): 3 Duration: < 15 minutes/day Frequency: decline to answer Cheryl/Pentecostalism: Caodaism Special cheryl needs: No Seatbelt use: always Helmet use: Yes Helmet use: always Drive intox or ride w/intox laundry route driver: No Do you feel safe at home: Yes Do you feel safe in your relationship?: Yes Exam <JUAN Harley - Last Filed: 01/26/22 15:44> Const General: cooperative, comfortable, no acute distress and anxious Orientation: alert, awake and oriented x3 HENMT Head: normal to inspection, normocephalic and atraumatic Face and sinus: normal facial exam Mouth: moist mucous membranes abnormal (Slightly dry) Eyes General: appearance normal, both eyes and all related structures Conjunctivae: conjunctivae normal Neck Neck: normal visual inspection, full ROM, trachea midline and supple Resp Effort & Inspection: normal respiratory effort and able to speak in complete sentences Auscultation: clear to auscultation bilaterally Cardio Rate: regular rate Rhythm: regular rhythm GI Palpation: soft, not firm, no guarding, no pulsatile masses and nontender Back/Spine/Pelvis Back: No back tenderness Skin General skin exam: no rashes or lesions noted Neuro General: patient alert, patient awake, patient oriented x3, moves all extremities and no focal motor deficits Cranial Nerves: CN's II-XI intact bilaterally Cognition: normal cognition Speech: speech normal Gait: normal gait Motor: muscle tone normal throughout Sensory Exam: no sensory deficits noted Extrem General: normal to inspection, full ROM, capillary refill normal, no pedal edema and no calf tenderness Psych Appearance: grossly normal Mental Status: mental status grossly normal Speech and Movement: speech and movement normal Mood: anxious mood and dysthymic mood Affect: sad Attitude: cooperative Thought Process: normal Thought Content: suicidality Insight: fair Judgment: fair Course <JUAN Harley - Last Filed: 01/26/22 15:44> Vital Signs Vital signs: Vital Signs Temperature 36.5 C 01/26/22 14:14 Pulse 100 H 01/26/22 14:14 Respiratory Rate 18 01/26/22 14:14 Blood Pressure 132/91 H 01/26/22 14:14 Pulse Oximetry 97 01/26/22 14:14 Temperature 36.5 C 01/26/22 14:14 Temperature Source Temporal Artery Scan 01/26/22 14:14 Pulse 100 H 01/26/22 14:14 Respiratory Rate 18 01/26/22 14:14 Blood Pressure 132/91 H 01/26/22 14:14 Blood Pressure Position Sitting 01/26/22 14:14 Pulse Oximetry 97 01/26/22 14:14 Oxygen Delivery Method Room Air 01/26/22 14:14 Oxygen Flow Rate 0 01/26/22 14:14 Sign Out <JUAN Harley - Last Filed: 01/26/22 15:44> Sign Out Data: Sign Out Comment: Presents with anxiety, depression, vague SI, decreased p.o. intake over the past 6 days. Currently establishing IV access, giving IV fluids and obtaining routine screening laboratory values. Once medically cleared will need a mental health evaluation as well. Last updated by Jesse Ann PA at 01/26/22 15:44 Sign Out Comment: Patient is medically clear and clinically sober. Consult has been requested for a mental health evaluation. Pending his evaluation patient signed out for final disposition after evaluation is completed Last updated by Mendel Napoles NP at 01/26/22 23:17
[2022-01-26] MEDS: Normal Saline 1,000 ML 1000 ML IV (15:51)
[2022-01-26 15:52] LABS: Abs Immature Grans 0.02 10^3/uL (0.0-0.06); Absolute Basophil Count 0.03 10^3/uL (0.0-0.2); Absolute Eosinophil Count 0.04 10^3/uL (0.0-0.7); Absolute Lymphocyte Count 1.76 10^3/uL (1.2-3.4); Absolute Monocyte Count 0.47 10^3/uL (0.1-0.8); Basophils % 0.5; Eosinophils % 0.7; HCT 48.2 % (36.0-46.0); HGB 16.8 g/dL (11.2-15.7); Immature Grans % 0.3; Lymphocytes % 30.2; MCH 36.2 pg (27.0-33.0); MCHC 34.9 % (32.0-36.0); MCV 104 fL (80-95); MPV 9.9 fL (8.0-11.0); Monocytes % 8.1; Neutrophils % 60.2; Platelet Count 235 10^3/uL (130-400); RBC 4.64 10^6/uL (3.93-5.22); RDW 12.2 % (11.7-14.6); RDW-SD 47.2 fL; WBC 5.82 10^3/uL (4.4-10.8)
[2022-01-26 16:42] LABS: ALT 157 U/L (14-59); AST 228 U/L (15-37); Albumin 4.6 g/dL (3.4-5.0); Alkaline Phosphatase 79 U/L (46-116); Anion Gap 10.6 mmol/L (3-11); BUN 8 mg/dL (7-18); Bilirubin, Total 0.7 mg/dL (0.2-1.0); CO2 27.4 mmol/L (21.0-32.0); CREATININE 0.8 mg/dL (0.55-1.02); Calcium 9.1 mg/dL (8.5-10.1); Chloride 105 mmol/L (98-107); ETHANOL BLOOD 173.5 mg/dL (<10); Glucose 85 mg/dL (74-106); Potassium 3.5 mmol/L (3.5-5.1); Sodium 143 mmol/L (136-145); TSH (W/Ref FT4) 0.98 uIU/mL (0.36-3.74)
[2022-01-26 17:39] LABS: Source Nasal/Nares
[2022-01-26] MEDS: Ketorolac 15 MG/ML VIAL IVP (18:00)
[2022-01-26 18:37] LABS: COVID-19 PCR Negative (Negative)
[2022-01-26 18:43] LABS: *AMPHETAMINES SCREEN URINE Positive (Negative); *BARBITURATES SCREEN URINE Negative (Negative); *BENZODIAZEPINES SCREEN URINE Negative (Negative); Cannabinoids THC Positive (Negative); Cocaine Screen,Urine Negative (Negative); METHADONE URINE SCREEN Negative (Negative); OPIATES URINE SCREEN Negative (Negative)
[2022-01-26 18:44] LABS: Bilirubin Negative (Negative); Blood Trace-lysed (Negative); Clarity Clear (Clear); Glucose Negative (Negative); Ketones Trace mg/dL (Negative); Leukocyte Esterase Negative (Negative); Nitrite Negative (Negative); Specific Gravity 1.025 (1.005-1.025); Urobilinogen 0.2 EU/dL (Up TO 0.2)
[2022-01-26 18:49] LABS: Tricyclic Antidepressants Negative (Negative)
[2022-01-26 18:51] LABS: Bacteria Few HPF (Negative); C & S Indicated? No/Sq. Contamination; Casts Negative LPF (Negative); Crystals Negative HPF (Negative); Epithelial Cells Many HPF (Negative); Mucus Moderate (Negative); Other Cells Negative (Negative); RBC Negative HPF (0-2)
[2022-01-26] MEDS: diphenhydrAMINE 50 MG/ML VIAL 25 MG IVP (20:07)
[2022-01-26] MEDS: Nicotine 4 MG GUM CH (20:07)
[2022-01-26] MEDS: Acetaminophen 325 MG TAB 650 MG PO (21:45)
[2022-01-26] MEDS: hydrOXYzine HCL 25 MG TAB PO (21:46)
[2022-01-26] MEDS: Ibuprofen 400 MG TAB PO (21:46)
[2022-01-26 22:59] LABS: ETHANOL BLOOD 11.2 mg/dL (<10)
[2022-01-27 01:38] VITALS: BP 124/78; RESP 18; TEMP 36.6; O2SAT 100
== END 2022-01-27 01:24 | disposition home or self-care (01) ==
PROVIDERS: Nurse Practitioner Family; Physician Assistant; Emergency Provider Emergency Medicine; PCP Nurse Practitioner Family
DX: F32.A Depression, unspecified (principal); D58.2 Other hemoglobinopathies; R74.01 Elevation of levels of liver transaminase levels; R51.9 Headache, unspecified; F17.210 Nicotine dependence, cigarettes, uncomplicated; Z20.822 Contact with and (suspected) exposure to COVID-19; E78.5 Hyperlipidemia, unspecified
CPT/HCPCS: 80053; 80307; 81025; 87635; 96361; 96374; 96375; 99284; 80320; 81003; 81015; 84443; 85025; J1200; J1885

== ENCOUNTER 2022-04-10 23:35 | Observation (INO) | payer MEDICAID, SELFPAY ==
--- NOTE | 2022-04-10 23:30 | RT.EKG_ITS ---
APPROVED REPORT Exam: Resting ECG Reason for Exam: overdose Patient Location: E HR:109 bpm ECG Measurements Heart Rate 109 AXIS ID 141 P 83 QRSd 73 QRS 57 QT 371 T 81 QTc 501 Conclusion Sinus tachycardia...rate> 99 Probable left atrial enlargement...P >50mS, <-0.10mV V1 Anteroseptal infarct, age indeterminate...Q >35mS, T neg, V1-V2 I have reviewed and interpreted ECG and agree with software generated interpretation.
[2022-04-10 23:40] VITALS: BP 134/99; PULSE 110; RESP 16; TEMP 36.5; O2SAT 99
[2022-04-10 23:43] VITALS: BP 143/107; PULSE 108; PULSE 109; RESP 11; O2SAT 98
[2022-04-10 23:44] VITALS: PULSE 109; RESP 17
[2022-04-10 23:46] VITALS: BP 134/99; PULSE 105; PULSE 107; RESP 15; O2SAT 99
--- NOTE | 2022-04-10 23:47 | W.ED.GENAD ---
Discharge Plan Disposition Patient Disposition: [facility] INPATIENT Condition: Stable Discharge Details Chief Complaint: OD/Poison Clinical Impression: Overdose, Acute hypokalemia Primary Care Provider: Pauline Wagner ED Provider: Feliciano Chance Home Meds and New Rx's Prescriptions: No Action bupropion HCl [Wellbutrin XL] 150 mg tablet extended release 24 hr 150 mg PO DAILY Qty: 90 3RF Rx Instructions: Take 1 tablet daily Mirena 20 mcg/24 hours (6 yrs) 52 mg intrauterine device 1 device intrauterine ONCE lisdexamfetamine 50 mg capsule 50 mg PO DAILY MDD 1 pill Qty: 28 0RF lorazepam 1 mg tablet 1 mg PO QHS PRN (Reason: sleep) Qty: 30 0RF Medical Decision Making This is a 41-year-old female with a past medical history of depression who presents today for evaluation of overdose. Patient states that she has felt slightly depressed in general, and was recently prescribed 300 mg Wellbutrin. She states that today she drank small amounts of alcohol throughout the entirety of the day, then at 7 PM she took 7 to 8 tablet of 300 mg Wellbutrin extended release. Since then she has been feeling slightly out of it, felt tingly throughout parts of her body, and then called her neighbor at about 11 PM to come and bring her in. She denies any intent to harm herself. She states that she took the extra pills because she felt that the other meds just were not helping her get any better any quicker. Her goal is to feel better, not to harm herself or to end her life. She denies any homicidal or suicidal ideations. No other complaints at this time. She denies any other IV or illicit drugs. Exam demonstrates a slightly intoxicated appearing female, minimally altered, but definitely not obtunded in any way. She is maintaining her airway well, she is quite communicative, she shows no focal neurologic deficits. Because of the extended release nature of the Wellbutrin, she is at risk for potential seizures for an extended period. EKG is stable, QRS is unremarkable. QT is 371. Mild sinus tachycardia. We will continue to monitor the patient, stabilized her here in the ED, with plan for admission with continued observation for 24 hours. 2:58 AM Laboratory work-up remained stable. Minimal transaminitis which appears at baseline for the patient. Potassium is 3.2, minimal elevation of anion gap, patient has been rehydrated with over a liter of normal saline. Supplemental potassium has been given. Magnesium level is normal. TSH is fairly high at 7.5, but free T4 is within normal limits. Tox screen is unremarkable aside for a urine drug screen being positive for amphetamines and THC. She is on an amphetamine-based prescription medication. Patient remained stable, mental status notably stable. Neurologic assessment remains stable with no significant abnormality. No signs of seizure activity whatsoever. Toxicology does recommend 24-hour observation. Discussed the case with the hospitalist Dr. Carranza, he agrees with the assessment and plan. I will place admission orders on his behalf. I have extensively reviewed the treatment plan with the patient. I have addressed all patient concerns at this time. I have also discussed the plan with the admitting physician and they agree with the current assessment and plan and have agreed to assume responsibility for the patient. All parties demonstrate verbal understanding and agreement with our assessment and plan at this time. The documentation in this chart was dictated using [employer] dictation software. Please excuse any dictation errors. EKG 23: 51 Rate 109, sinus tachycardia, no significant ST elevations or depressions. No evidence of STEMI. QRS is 73, QT is 371. QTc is 501. HPI General Date/Time Provider Initiated Documentation: 04/10/22 23:36. HPI Narrative: This is a 41-year-old female with a past medical history of depression who presents today for evaluation of overdose. Patient states that she has felt slightly depressed in general, and was recently prescribed 300 mg Wellbutrin. She states that today she drank small amounts of alcohol throughout the entirety of the day, then at 7 PM she took 7 to 8 tablet of 300 mg Wellbutrin extended release. Since then she has been feeling slightly out of it, felt tingly throughout parts of her body, and then called her neighbor at about 11 PM to come and bring her in. She denies any intent to harm herself. She states that she took the extra pills because she felt that the other meds just were not helping her get any better any quicker. Her goal is to feel better, not to harm herself or to end her life. She denies any homicidal or suicidal ideations. No other complaints at this time. She denies any other IV or illicit drugs. Related Data Home Medications Medication Instructions Recorded Confirmed levonorgestrel 20 mcg/24 hours (7 1 device intrauterine ONCE 10/05/20 04/11/22 yrs) 52 mg intrauterine device (Mirena) bupropion HCl 150 mg 24 hr tablet, 150 mg PO DAILY #90 tabs 03/14/22 04/11/22 extended release (Wellbutrin XL) lisdexamfetamine 50 mg capsule 50 mg PO DAILY #28 caps 03/26/22 04/11/22 lorazepam 1 mg tablet 1 mg PO QHS PRN sleep #30 tabs 04/01/22 04/11/22 Previous Rx's Medication Instructions Recorded bupropion HCl 150 mg 24 hr tablet, 150 mg PO DAILY #90 tabs 03/14/22 extended release (Wellbutrin XL) lisdexamfetamine 50 mg capsule 50 mg PO DAILY #28 caps 03/26/22 lorazepam 1 mg tablet 1 mg PO QHS PRN sleep #30 tabs 04/01/22 Allergies Allergy/AdvReac Type Severity Reaction Status Date / Time bupropion [From Wellbutrin] AdvReac Intermediate Hallucinati Verified 04/10/22 23:53 ons General JOSE: 2 Review of Systems All systems reviewed & are unremarkable except as noted in HPI and below PFSH All Active Problems (Updated 04/11/22 @ 03:00 by Feliciano Chance DO) Overdose (Acute) Acute hypokalemia (Acute) Generalized anxiety disorder (Acute) Panic attacks (Acute) Hyperlipidemia (Chronic) Depressive disorder (Chronic) Attention deficit hyperactivity disorder (ADHD) (Chronic) Cigarette smoker (Chronic) IUD surveillance (Chronic) Mirena IUD inserted 04/16/2018 Medical History Alcohol use disorder Surgical History No significant past surgical history Family History Mother Essential hypertension Father Alcohol abuse Asthma Substance abuse Sister Depression Brother Alcohol abuse Substance abuse Daughter No problems noted. Daughter No problems noted. Maternal Grandfather , age 88 ALS (amyotrophic lateral sclerosis) Maternal Grandmother , age 67 Hyperlipidemia Cancer Paternal Grandfather , age 88 Prostate cancer Paternal Grandmother , age 89 Heart disease Sister No problems noted. Social History Smoking/Tobacco Use Status: Current-Occasional Tobacco Type: cigarettes Tobacco: How many years used: 20 Quit status: not considering quitting Second Hand Exposure: Yes Smoking risk assessment performed?: Yes Alcohol Intake: current Alcohol Intake frequency: a few times a week Alcohol type: wine Substance use type: marijuana Caregiver/Support person: No Household members: spouse and children Housing: house Communication Needs: None Do you need help understanding health information?: Never Pets and animals: Yes Pets and animals: cat(s) and dog(s) Sexually active: Yes Do you think of yourself as: straight/heterosexual Current gender identity: female What is your relationship status?: How often do you talk on the phone with friends or family?: three or more times per week How often do you get together with friends or relatives?: once per week How often do you attend restorationism or roman catholic services?: 4 or more times per year Do you belong to any clubs or organized social groups?: no Panel score (0-1 are the most socially isolated patients): 3 Duration: < 15 minutes/day Frequency: decline to answer Cheryl/Druze: Church Special cheryl needs: No Seatbelt use: always Helmet use: Yes Helmet use: always Drive intox or ride w/intox newspaper delivery driver: No Do you feel safe at home: Yes Do you feel safe in your relationship?: Yes Exam Narrative Exam Narrative: 1.Const: Well-nourished, Well-developed, appearing stated age 2.Eyes: PERRL, no conjunctival injection, and symmetrical lids. 3.ENT: Atraumatic external nose and ears. Moist MM. Neck: Symmetric, trachea midline, No thyromegaly. 4.CVS: +S1/S2, No murmurs or gallops. Peripheral pulses 2+ and equal in all extremities. Brisk capillary refill in all extremities. 5.RESP: Unlabored respiratory effort. Clear to auscultation bilaterally. No wheezes rales or rhonchi 6.GI: Soft, Nontender/Nondistended, No hepatosplenomegaly. No guarding or rebound. 7.MSK: Normocephalic/Atraumatic, Extremities w/o deformity or ttp No cyanosis or clubbing, Normal movement of all extremities no hyperreflexia or hyporeflexia. No clonus. No asterixis.. 8.Skin: Warm, Dry. No rashes or lesions. 9.Neuro: automatic presser II-XII grossly intact. Sensation grossly intact, no focal neurologic deficits. 10.Psych: (AAO) x3. Appropriate mood and affect
[2022-04-10 23:50] VITALS: PULSE 111; RESP 16; O2SAT 98
[2022-04-10 23:52] LABS: Abs Immature Grans 0.02 10^3/uL (0.0-0.06); Absolute Basophil Count 0.06 10^3/uL (0.0-0.2); Absolute Eosinophil Count 0.12 10^3/uL (0.0-0.7); Absolute Lymphocyte Count 2.84 10^3/uL (1.2-3.4); Absolute Monocyte Count 0.78 10^3/uL (0.1-0.8); Absolute Neutrophil Count 3.84 10^3/uL (1.2-6.7); Basophils % 0.8; Eosinophils % 1.6; HCT 44.8 % (36.0-46.0); HGB 16.2 g/dL (11.2-15.7); Immature Grans % 0.3; Lymphocytes % 37.1; MCH 37.6 pg (27.0-33.0); MCHC 36.2 % (32.0-36.0); MCV 104 fL (80-95); MPV 9.7 fL (8.0-11.0); Monocytes % 10.2; Platelet Count 260 10^3/uL (130-400); RBC 4.31 10^6/uL (3.93-5.22); RDW 12.1 % (11.7-14.6); RDW-SD 46.9 fL; WBC 7.66 10^3/uL (4.4-10.8)
[2022-04-11] VITALS (38 sets, daily range): BP systolic 112–152; BP diastolic 73–110; PULSE 0–117; RESP 7–24; TEMP 36.7–37.2; O2SAT 79–100
[2022-04-11] MEDS: Normal Saline 1,000 ML 1000 ML IV
[2022-04-11 00:11] LABS: Source Nasal/Nares
[2022-04-11 00:16] LABS: ALT 73 U/L (14-59); AST 68 U/L (15-37); Albumin 4.6 g/dL (3.4-5.0); Alkaline Phosphatase 86 U/L (46-116); Anion Gap 12.9 mmol/L (3-11); BUN 5 mg/dL (7-18); Bilirubin, Total 0.5 mg/dL (0.2-1.0); CO2 26.1 mmol/L (21.0-32.0); CREATININE 0.7 mg/dL (0.55-1.02); Calcium 9.5 mg/dL (8.5-10.1); Chloride 102 mmol/L (98-107); ETHANOL BLOOD 221.8 mg/dL (<10); Estimated GFR 112.05 (mL/min/1.73m2); Glucose 88 mg/dL (74-106); Potassium 3.2 mmol/L (3.5-5.1); Sodium 141 mmol/L (136-145); TSH (W/Ref FT4) 7.57 uIU/mL (0.36-3.74); Total Protein 7.9 g/dL (6.4-8.2)
[2022-04-11 00:29] LABS: Acetaminophen < 2 ug/mL (10-30); Salicylate 4.8 mg/dL (<2.8)
[2022-04-11] MEDS: Normal Saline 1,000 ML 75 ML IV (00:30)
[2022-04-11 00:34] LABS: FREE T4 1.01 ng/dL (0.76-1.46)
[2022-04-11] MEDS: Potassium Chloride 20 MEQ TABCR 40 MEQ PO (00:43)
[2022-04-11] MEDS: POTASSIUM CHLORIDE 20 MEQ/100 ML BAG 50 MEQ IVPB (00:44)
[2022-04-11 00:49] LABS: Magnesium 1.8 mg/dL (1.8-2.4)
[2022-04-11] MEDS: Ondansetron 4 MG/2 ML VIAL (01:24)
[2022-04-11 01:43] LABS: *AMPHETAMINES SCREEN URINE Positive (Negative); *BARBITURATES SCREEN URINE Negative (Negative); *BENZODIAZEPINES SCREEN URINE Negative (Negative); Cannabinoids THC Positive (Negative); Cocaine Screen,Urine Negative (Negative); METHADONE URINE SCREEN Negative (Negative); OPIATES URINE SCREEN Negative (Negative)
[2022-04-11 01:49] LABS: Tricyclic Antidepressants Negative (Negative)
[2022-04-11] MEDS: Ondansetron 4 MG/2 ML VIAL IVP (03:15)
[2022-04-11] MEDS: Normal Saline 1,000 ML 150 ML IV ×2 (04:16→10:13)
--- NOTE | 2022-04-11 07:00 | W.PM.HP.N ---
Date of service: 04/11/22 Time of Service: 06:30 Assessment and Plan Assessment and plan (1) Overdose: Start date: 04/11/22 Status: Acute Assessment and plan: This is a 41-year-old lady who took up to 8 of her recently prescribed Wellbutrin XL tablets at 300 mg with Poison control advising observation watching for possible seizures with an extended period of time because of the delayed release. She was drinking alcohol at the time and seems to have cleared her inebriation clinically. She will be on [facility] protocol and is having some mild visual hallucinations but these seem to be clearing. This could be secondary to the Wellbutrin as well. Patient is a full code. She will need follow-up with mental health once medically cleared. She may be a voluntary inpatient versus structured outpatient psychiatric evaluation and care. (2) Acute alcohol intoxication: Start date: 04/11/22 Status: Acute Assessment and plan: Patient has been drinking wine previously and now vodka daily with acute intoxication during her accidental overdosing with Wellbutrin. Long-term she should seek alcohol cessation counseling. (3) Generalized anxiety disorder: Status: Chronic Assessment and plan: Patient self medicates with multiple substances and needs reevaluation of her psychiatric disease with appropriate treatment. History of Present Illness History of Present Illness Chief Complaint: Alcohol intoxication with unintentional Wellbutrin overdose. 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 She presently lives at home from her who has returned to drug use and she has advanced from drinking wine daily when she was working to [employer] presented to the ED intoxicated having taken 7 to 8 tablets of her Wellbutrin extended release 300 mg capsules. She does not remember having suicidal ideation and was intoxicated at the time she took her medications. She told the ED physician that she was trying to feel better. She does struggle with mood disorder and has been smoking THC she also is on treatment for ADHD. She also recently had an emptiness syndrome with her daughter going off to college and her older daughter seem to be . Increased life stressors appear to be affecting her drug misuse and abuse. She is a smoker but does not take any chronic respiratory treatments. At the time I saw the patient she was not intoxicated and was able to give a clear history. She had no active suicidal ideation. She does feel depressed. Review of Systems Narrative: 13 point review of systems otherwise unrevealing or stable. PFSH All Active Problems (Updated 04/11/22 @ 19:39 by Tj Carranza) Acute alcohol intoxication (Acute) Overdose (Acute) Acute hypokalemia (Acute) Generalized anxiety disorder (Chronic) Panic attacks (Acute) Hyperlipidemia (Chronic) Depressive disorder (Chronic) Attention deficit hyperactivity disorder (ADHD) (Chronic) Cigarette smoker (Chronic) IUD surveillance (Chronic) Mirena IUD inserted 04/16/2018 Medical History Alcohol use disorder Surgical History No significant past surgical history Family History Mother Essential hypertension Father Alcohol abuse Asthma Substance abuse Sister Depression Brother Alcohol abuse Substance abuse Daughter No problems noted. Daughter No problems noted. Maternal Grandfather , age 88 ALS (amyotrophic lateral sclerosis) Maternal Grandmother , age 67 Hyperlipidemia Cancer Paternal Grandfather , age 88 Prostate cancer Paternal Grandmother , age 89 Heart disease Sister No problems noted. Social History Smoking/Tobacco Use Status: Current-Occasional Tobacco Type: cigarettes Tobacco: How many years used: 20 Quit status: not considering quitting Second Hand Exposure: Yes Smoking risk assessment performed?: Yes Alcohol Intake: current Alcohol Intake frequency: a few times a week Alcohol type: wine Substance use type: marijuana Caregiver/Support person: No Household members: spouse and children Housing: house Communication Needs: None Do you need help understanding health information?: Never Pets and animals: Yes Pets and animals: cat(s) and dog(s) Sexually active: Yes Do you think of yourself as: straight/heterosexual Current gender identity: female What is your relationship status?: How often do you talk on the phone with friends or family?: three or more times per week How often do you get together with friends or relatives?: once per week How often do you attend religion or yazdanism services?: 4 or more times per year Do you belong to any clubs or organized social groups?: no Panel score (0-1 are the most socially isolated patients): 3 Duration: < 15 minutes/day Frequency: decline to answer Cheryl/Anabaptist: Hinduism Special cheryl needs: No Seatbelt use: always Helmet use: Yes Helmet use: always Drive intox or ride w/intox motor vehicle escort driver: No Do you feel safe at home: Yes Do you feel safe in your relationship?: Yes Meds Allergies and Home Medications Allergies Allergy/AdvReac Type Severity Reaction Status Date / Time bupropion [From Wellbutrin] AdvReac Intermediate Hallucinati Verified 04/10/22 23:53 ons Home Medications Medication Instructions Recorded Confirmed Type levonorgestrel 20 mcg/24 hours (7 1 device intrauterine ONCE 10/05/20 04/11/22 History yrs) 52 mg intrauterine device (Mirena) bupropion HCl 150 mg 24 hr tablet, 150 mg PO DAILY #90 tabs 03/14/22 04/11/22 Rx extended release (Wellbutrin XL) lisdexamfetamine 50 mg capsule 50 mg PO DAILY #28 caps 03/26/22 04/11/22 Rx lorazepam 1 mg tablet 1 mg PO QHS PRN sleep #30 tabs 04/01/22 04/11/22 Rx Exam Narrative Exam Narrative: General: Patient appears appropriate for age, alert and oriented x3 and in no acute distress. Flat affect but good eye contact. Mood is depressed. Speech is slow and monotonous. HEENT: Normocephalic, eyes with pupils equal and react light symmetrically, extraocular movement tact and sclera anicteric. Oropharynx with moist mucosa. Good dentition. Neck: Supple without JVD. Back: Normal posture without CVA tenderness. Lungs: Bronchovesicular breath sounds diffusely with occasional rhonchi but no focalizing rales. Fair aeration. Breast: Exam deferred. Heart: Regular rate and rhythm with no murmurs gallops appreciated. Abdomen: Normal contour, soft and nontender to palpation with no palpable hepatosplenomegaly. Genitalia/rectal: Exam deferred. Extremity: Without clubbing, cyanosis or pitting edema. Peripheral pulses intact. Skin: Normal color, warm and dry. Neuro: Cranial nerves II through XII grossly intact, no focalizing motor deficits and no tremor. Psych: Flattened affect with depressed mood. Slow monotonous tone to voice. No abnormal thought processes at the time I talked with patient though she was stating that she was seen the board on the wall change shapes and sensed some of the health program director light appearing as smoke or fog which was not persisting. She was aware of these being visual hallucinations. Remote and recent memory appear to be grossly intact. Results Labs Result diagrams: 04/11/22 08:27 04/11/22 08:27 Labs: Laboratory Results - last 24 hr 04/10/22 04/10/22 04/10/22 23:45 23:45 23:45 WBC 7.66 RBC 4.31 Hgb 16.2 H Hct 44.8 MCV 104 H MCH 37.6 H MCHC 36.2 H RDW 12.1 Plt Count 260 MPV 9.7 Immature Gran % 0.3 Neutrophils % 50.0 Lymphocytes % 37.1 Monocytes % 10.2 Eosinophils % 1.6 Basophils % 0.8 Nucleated RBC % 0.0 Absolute Neutrophils 3.84 Absolute Lymphocytes 2.84 Absolute Monocytes 0.78 Absolute Eosinophils 0.12 Absolute Basophils 0.06 Sodium 141 Potassium 3.2 L Chloride 102 Carbon Dioxide 26.1 Anion Gap 12.9 H BUN 5 L Creatinine 0.7 Est GFR (CKD-EPI 2020) 112.05 Glucose 88 Calcium 9.5 Magnesium 1.8 Total Bilirubin 0.5 AST 68 H ALT 73 H Alkaline Phosphatase 86 Total Protein 7.9 Albumin 4.6 TSH 7.57 H Free T4 1.01 Salicylates Urine Opiates Screen Urine Methadone Screen Acetaminophen Ur Barbiturates Screen Ur Tricyclics Screen Ur Amphetamines Screen U Benzodiazepines Scrn Urine Cocaine Screen Ur THC Screen Ethyl Alcohol 221.8 H COVID-19 Source 04/10/22 04/11/22 04/11/22 23:57 00:10 01:20 WBC RBC Hgb Hct MCV MCH MCHC RDW Plt Count MPV Immature Gran % Neutrophils % Lymphocytes % Monocytes % Eosinophils % Basophils % Nucleated RBC % Absolute Neutrophils Absolute Lymphocytes Absolute Monocytes Absolute Eosinophils Absolute Basophils Sodium Potassium Chloride Carbon Dioxide Anion Gap BUN Creatinine Est GFR (CKD-EPI 2020) Glucose Calcium Magnesium Total Bilirubin AST ALT Alkaline Phosphatase Total Protein Albumin TSH Free T4 Salicylates 4.8 Urine Opiates Screen Negative Urine Methadone Screen Negative Acetaminophen < 2 Ur Barbiturates Screen Negative Ur Tricyclics Screen Negative Ur Amphetamines Screen Positive A U Benzodiazepines Scrn Negative Urine Cocaine Screen Negative Ur THC Screen Positive A Ethyl Alcohol COVID-19 Source Nasal/Nares Last Vital Signs Temp 36.8 C 04/11/22 03:36 Pulse 112 H 04/11/22 04:09 Resp 16 04/11/22 03:36 BP 122/86 04/11/22 03:36 Pulse Ox 99 04/11/22 03:36 PAWSS Have you Been Recently Intoxicated or Drunk Within the Last 30 days?: Yes Have you Ever Experienced Previous Episodes of Alcohol Withdrawal?: No Have you ever Experienced Withdrawal Seizures?: No Have you ever Experienced Delirium Tremens(DT)s?: No Have you ever undergone Alcohol Rehabilitation Treatment (i.e, inpt ot outpatient treatment programs)?: No Have you ever Experienced Blackouts?: No Have you ever Combined Alcohol with other Downers within the last 90 days?: Yes Have you ever Combined Alcohol with any other Substance of Abuse during the last 90 days?: Yes Positive Blood Alcohol level on Presentation? [PCS.BAL]: Yes Evidence of Increased Autonomic Activity (i.e. HR>120, tremor, sweating, agitation, nausea)?: Yes Result: 5
[2022-04-11] MEDS: LORazepam 1 MG TAB PO/SL ×2 (07:55→11:59)
[2022-04-11 08:33] LABS: Abs Immature Grans 0.03 10^3/uL (0.0-0.06); Absolute Basophil Count 0.04 10^3/uL (0.0-0.2); Absolute Eosinophil Count 0.01 10^3/uL (0.0-0.7); Absolute Lymphocyte Count 1.06 10^3/uL (1.2-3.4); Absolute Monocyte Count 0.71 10^3/uL (0.1-0.8); Absolute Neutrophil Count 8.29 10^3/uL (1.2-6.7); Basophils % 0.4; Eosinophils % 0.1; HCT 41.7 % (36.0-46.0); HGB 14.8 g/dL (11.2-15.7); Immature Grans % 0.3; Lymphocytes % 10.5; MCH 37.2 pg (27.0-33.0); MCHC 35.5 % (32.0-36.0); MCV 105 fL (80-95); MPV 9.8 fL (8.0-11.0); Neutrophils % 81.7; Platelet Count 223 10^3/uL (130-400); RBC 3.98 10^6/uL (3.93-5.22); RDW 12.2 % (11.7-14.6); RDW-SD 47.9 fL; WBC 10.14 10^3/uL (4.4-10.8)
[2022-04-11 08:51] LABS: ALT 61 U/L (14-59); AST 53 U/L (15-37); Albumin 4.2 g/dL (3.4-5.0); Alkaline Phosphatase 77 U/L (46-116); Anion Gap 14.4 mmol/L (3-11); BUN 5 mg/dL (7-18); Bilirubin, Direct 0.4 mg/dL (0.0-0.2); Bilirubin, Total 1.1 mg/dL (0.2-1.0); CO2 20.6 mmol/L (21.0-32.0); CREATININE 0.7 mg/dL (0.55-1.02); Calcium 8.3 mg/dL (8.5-10.1); Chloride 101 mmol/L (98-107); Estimated GFR 112.05 (mL/min/1.73m2); Glucose 81 mg/dL (74-106); Magnesium 1.1 mg/dL (1.8-2.4); Potassium 4.2 mmol/L (3.5-5.1); Sodium 136 mmol/L (136-145); Total Protein 7.1 g/dL (6.4-8.2)
[2022-04-11] MEDS: Multivitamin TAB 1 TAB PO (09:01)
[2022-04-11] MEDS: Thiamine 100 MG TAB PO (09:01)
[2022-04-11] MEDS: Folic Acid 1 MG TAB PO (09:01)
[2022-04-11] MEDS: Enoxaparin 40 MG/0.4 ML SYR SC (09:13)
--- NOTE | 2022-04-11 11:12 | INITIAL_ITS ---
- If Service Date Differs Date of service: 04/11/22 Time of Service: 11:12 Care Management Initial Assess REASON FOR HOSPITALIZATION:: Accidental Overdose PAST MEDICAL HISTORY/PAST SURGICAL HISTORY:: Medical History . Alcohol use disorder. Surgical History . No significant past surgical history PREVIOUS FUNCTIONAL STATUS/SOCIAL/FAMILY SUPPORTS:: Resides in [facility], employed at [employer]. CURRENT FUNCTIONAL STATUS:: Shellie is sleeping with door closed, per RN, she was anxious and took ativan this afternoon. Nicotene replacement initiated as well. Has patient been provided with info about the portal/API?: Yes Did the patient sign up for the portal?: No CODE STATUS:: Full Code INSURANCE COVERAGE / FINANCIAL ISSUES:: Medicaid PRIMARY CARE PHYSICIAN:: Pauline Wagner POTENTIAL DISCHARGE NEEDS:: Follow up appointments, possible screening with [facility] PATIENT/FAMILY EDUCATION NEEDS:: Review discharge instructions, discuss Ask Me Three. ANTICIPATED BARRIERS TO DISCHARGE:: None identified at this time. TRANSPORTATION:: Via private vehicle with family. PLAN:: Shellie
[2022-04-11] MEDS: MAGNESIUM SULFATE 4 GM/100 ML BAG IVPB (11:18)
[2022-04-11 12:04] LABS: ETHANOL BLOOD < 3.0 mg/dL (<10)
--- NOTE | 2022-04-11 12:55 | NUR.NOTE ---
Nursing Note: POISON CONTROLLED CALLED THIS AFTERNOON FOR A FOLLOW UP ON PATIENT AFTER BEING CONTACTED LAST NIGHT BY Josefa FORDE, ED PROVIDER. PHARMACIST FROM POISON CONTROL RECOMMENDED CONTINUING TO MONITOR CIWA VS WELLBUTRIN TOXICITY. PT SHOULD STAY ON TELEMETRY FOR AT LEAST 24 HOURS AND SHOULD CONTINUED TO BE CLOSELY MONITORED FOR SEIZURE ACTIVITY + MONITOR VITALS CLOSELY.
[2022-04-11 17:08] LABS: COVID-19 PCR Negative (Negative)
--- NOTE | 2022-04-11 19:30 | PGE_ITS ---
Date of Service Date of service: 04/11/22 Time of Service: 17:30 Subjective Subjective Interval history since last seen: Ms Schmid states that her hallucinations, blurred vision, anxiety have all resolved. She feels practically back to normal. She denies suicidal intent in taking the the welbutrin. She agrees to talk to mental heatlh. On tele, ST 100 (50-120). Will await mental health evaluation. Objective Last Vital Signs Temp 36.7 C 04/11/22 19:25 Pulse 102 H 04/11/22 19:25 Resp 18 04/11/22 19:25 BP 112/79 04/11/22 19:25 Pulse Ox 99 04/11/22 19:25 Laboratory Results - last 24 hr 04/10/22 04/10/22 04/10/22 23:45 23:45 23:45 WBC 7.66 RBC 4.31 Hgb 16.2 H Hct 44.8 MCV 104 H MCH 37.6 H MCHC 36.2 H RDW 12.1 Plt Count 260 MPV 9.7 Immature Gran % 0.3 Neutrophils % 50.0 Lymphocytes % 37.1 Monocytes % 10.2 Eosinophils % 1.6 Basophils % 0.8 Nucleated RBC % 0.0 Absolute Neutrophils 3.84 Absolute Lymphocytes 2.84 Absolute Monocytes 0.78 Absolute Eosinophils 0.12 Absolute Basophils 0.06 Sodium 141 Potassium 3.2 L Chloride 102 Carbon Dioxide 26.1 Anion Gap 12.9 H BUN 5 L Creatinine 0.7 Est GFR (CKD-EPI 2020) 112.05 Glucose 88 Calcium 9.5 Magnesium 1.8 Total Bilirubin 0.5 Conjugated Bilirubin AST 68 H ALT 73 H Alkaline Phosphatase 86 Total Protein 7.9 Albumin 4.6 TSH 7.57 H Free T4 1.01 Salicylates Urine Opiates Screen Urine Methadone Screen Acetaminophen Ur Barbiturates Screen Ur Tricyclics Screen Ur Amphetamines Screen U Benzodiazepines Scrn Urine Cocaine Screen Ur THC Screen Ethyl Alcohol 221.8 H COVID-19 Source SARS-CoV-2 (PCR) 04/10/22 04/11/22 04/11/22 23:57 00:10 01:20 WBC RBC Hgb Hct MCV MCH MCHC RDW Plt Count MPV Immature Gran % Neutrophils % Lymphocytes % Monocytes % Eosinophils % Basophils % Nucleated RBC % Absolute Neutrophils Absolute Lymphocytes Absolute Monocytes Absolute Eosinophils Absolute Basophils Sodium Potassium Chloride Carbon Dioxide Anion Gap BUN Creatinine Est GFR (CKD-EPI 2020) Glucose Calcium Magnesium Total Bilirubin Conjugated Bilirubin AST ALT Alkaline Phosphatase Total Protein Albumin TSH Free T4 Salicylates 4.8 Urine Opiates Screen Negative Urine Methadone Screen Negative Acetaminophen < 2 Ur Barbiturates Screen Negative Ur Tricyclics Screen Negative Ur Amphetamines Screen Positive A U Benzodiazepines Scrn Negative Urine Cocaine Screen Negative Ur THC Screen Positive A Ethyl Alcohol COVID-19 Source Nasal/Nares SARS-CoV-2 (PCR) Negative 04/11/22 04/11/22 04/11/22 08:27 08:27 11:40 WBC 10.14 RBC 3.98 Hgb 14.8 Hct 41.7 MCV 105 H MCH 37.2 H MCHC 35.5 RDW 12.2 Plt Count 223 MPV 9.8 Immature Gran % 0.3 Neutrophils % 81.7 Lymphocytes % 10.5 Monocytes % 7.0 Eosinophils % 0.1 Basophils % 0.4 Nucleated RBC % 0.0 Absolute Neutrophils 8.29 H Absolute Lymphocytes 1.06 L Absolute Monocytes 0.71 Absolute Eosinophils 0.01 Absolute Basophils 0.04 Sodium 136 Potassium 4.2 D Chloride 101 Carbon Dioxide 20.6 L Anion Gap 14.4 H BUN 5 L Creatinine 0.7 Est GFR (CKD-EPI 2020) 112.05 Glucose 81 Calcium 8.3 L Magnesium 1.1 L Total Bilirubin 1.1 H Conjugated Bilirubin 0.4 H AST 53 H ALT 61 H Alkaline Phosphatase 77 Total Protein 7.1 Albumin 4.2 TSH Free T4 Salicylates Urine Opiates Screen Urine Methadone Screen Acetaminophen Ur Barbiturates Screen Ur Tricyclics Screen Ur Amphetamines Screen U Benzodiazepines Scrn Urine Cocaine Screen Ur THC Screen Ethyl Alcohol < 3.0 COVID-19 Source SARS-CoV-2 (PCR) PAWSS Have you Been Recently Intoxicated or Drunk Within the Last 30 days?: Yes Have you Ever Experienced Previous Episodes of Alcohol Withdrawal?: No Have you ever Experienced Withdrawal Seizures?: No Have you ever Experienced Delirium Tremens(DT)s?: No Have you ever undergone Alcohol Rehabilitation Treatment (i.e, inpt ot out patient treatment programs)?: No Have you ever Experienced Blackouts?: No Have you ever Combined Alcohol with other Downers within the last 90 days?: Yes Have you ever Combined Alcohol with any other Substance of Abuse during the last 90 days?: Yes Positive Blood Alcohol level on Presentation? [PCS.BAL]: Yes Evidence of Increased Autonomic Activity (i.e. HR>120, tremor, sweating, agitation, nausea)?: Yes Result: 5
[2022-04-11] MEDS: Magnesium Chloride 64 MG TABCR PO (20:06)
[2022-04-12] VITALS: PULSE 77
[2022-04-12 03:49] VITALS: BP 115/78; PULSE 96; RESP 20; TEMP 36.7; O2SAT 98
[2022-04-12 06:53] LABS: Abs Immature Grans 0.03 10^3/uL (0.0-0.06); Absolute Basophil Count 0.03 10^3/uL (0.0-0.2); Absolute Eosinophil Count 0.07 10^3/uL (0.0-0.7); Absolute Lymphocyte Count 1.52 10^3/uL (1.2-3.4); Absolute Neutrophil Count 4.46 10^3/uL (1.2-6.7); Basophils % 0.4; HCT 47.1 % (36.0-46.0); HGB 16.9 g/dL (11.2-15.7); Immature Grans % 0.4; MCH 37.5 pg (27.0-33.0); MCHC 35.9 % (32.0-36.0); MCV 104 fL (80-95); MPV 10.3 fL (8.0-11.0); Monocytes % 11.6; Neutrophils % 64.6; Platelet Count 223 10^3/uL (130-400); RBC 4.51 10^6/uL (3.93-5.22); RDW 12.3 % (11.7-14.6); WBC 6.91 10^3/uL (4.4-10.8)
[2022-04-12 07:02] VITALS: PULSE 90
[2022-04-12 07:09] LABS: PHOSPHORUS 3.4 mg/dL (2.6-4.7)
[2022-04-12 07:12] LABS: ALT 50 U/L (14-59); AST 36 U/L (15-37); Albumin 3.6 g/dL (3.4-5.0); Alkaline Phosphatase 70 U/L (46-116); Anion Gap 7.6 mmol/L (3-11); BUN 9 mg/dL (7-18); Bilirubin, Total 1.2 mg/dL (0.2-1.0); CO2 26.4 mmol/L (21.0-32.0); CREATININE 0.6 mg/dL (0.55-1.02); Calcium 8.8 mg/dL (8.5-10.1); Chloride 104 mmol/L (98-107); Glucose 96 mg/dL (74-106); Magnesium 2.2 mg/dL (1.8-2.4); Potassium 4.1 mmol/L (3.5-5.1); Sodium 138 mmol/L (136-145); Total Protein 6.6 g/dL (6.4-8.2)
[2022-04-12 07:35] VITALS: BP 109/73; PULSE 84; RESP 16; TEMP 36.2; O2SAT 97
[2022-04-12] MEDS: Folic Acid 1 MG TAB PO (10:42)
[2022-04-12] MEDS: Multivitamin TAB 1 TAB PO (10:42)
[2022-04-12] MEDS: Magnesium Chloride 64 MG TABCR PO (10:42)
[2022-04-12] MEDS: Thiamine 100 MG TAB PO (10:42)
[2022-04-12 11:13] VITALS: BP 123/86; PULSE 89; RESP 16; TEMP 36.7; O2SAT 98
[2022-04-12 11:28] VITALS: PULSE 91
--- NOTE | 2022-04-12 11:31 | CMPROGNOTE_ITS ---
- If Service Date Differs Date of service: 04/12/22 Time of Service: 11:31 Care Management Progress Note S/O: Shellie remains at [facility], anxious and uncomfortable assumed this is related to impact of current MH stressors and PAO. Shellie will meet with [facility] who reports Shellie was in the community on a safety plan due to SI; check-in calls resulted in MH alerting to hospitalization. Shellie is now medically clear, per MD and will be evaluated; coordinated plan with [facility] and internal staff to follow. A: 41 year old female admitted to [facility] 04/11/22 for accidental overdose P: Anticipate Shellie will remain at [facility] awaiting psychiatric placement undetermined if she will be voluntary or involuntary. CM continues to follow.
--- NOTE | 2022-04-12 11:31 | PDOC.CMPRO ---
- If Service Date Differs Date of service: 04/12/22 Time of Service: 11:31 Care Management Progress Note S/O: Shellie remains at [facility], anxious and uncomfortable assumed this is related to impact of current MH stressors and PAO. Shellie will meet with [facility] who reports Shellie was in the community on a safety plan due to SI; check-in calls resulted in MH alerting to hospitalization. Shellie is now medically clear, per MD and will be evaluated; coordinated plan with [facility] and internal staff to follow. A: 41 year old female admitted to [facility] 04/11/22 for accidental overdose P: Anticipate Shellie will remain at [facility] awaiting psychiatric placement undetermined if she will be voluntary or involuntary. CM continues to follow.
--- NOTE | 2022-04-12 11:38 | NUR.NOTE ---
Nursing Note:Patient updated on care plan change to include CPSO. Patient states she wants to go home, wants to smoke and denies any plan for self harm. Patient states she did take too much medication to get high but was not trying to end her life.n I was really drunk. Nurse will update team
--- NOTE | 2022-04-12 12:19 | NUR.NOTE ---
Nursing Note:Pt was talking to EGG SMELLER about the other night before coming into the ER that she was drinking and was drunk and decided to take extra pills, she stated she wasnt sure how many she took because she pored some in her hand. pT also stated that shes never been high and the pills she takes she takes everyday just decided to take more due to being drunk.
--- NOTE | 2022-04-12 13:12 | PDOC.MHCN_ITS ---
Date of service: 04/12/22 Time of Service: 13:00 PHQ-9 Over the last 2 weeks, how often have you been bothered by any of the following problems? 1. Little interest or pleasure in doing things: more than half the days 2. Feeling down, depressed, or hopeless: more than half the days 3. Trouble falling or staying asleep, or sleeping too much: several days 4. Feeling tired or having little energy: several days 5. Poor appetite or overeating: nearly every day 6. Feeling bad about yourself - or that you are a failure or have let yourself and your family down: several days 7. Trouble concentrating on things, such as reading the newspaper or watching television: not at all 8. Moving or speaking so slowly that other people could have noticed? - Or the opposite - being so fidgety or restless that you have been moving around a lot more than usual: not at all 9. Thoughts that you would be better off or of hurting yourself in some way: several days Total score: 11 If you checked off any problems, how difficult have these problems made it for you to do your work, take care of things at home, or get along with other people?: very difficult Source: Developed by Drs. Bennett John, Eloise Mcgee, Noe Rouse and colleagues, with an educational beatriz from [employer]. Suicide Severity Rate CSSRS Have you wished you were or wished you could go to sleep and not wake up?: No Have you actually had any thoughts of killing yourself?: No CSSRS3 Have you ever done anything, started to do anything or prepared to do anything to end your life?: No CSSRS4 Was this within the past three months?: No Screening Score Total Score: 0 Screening: Negative Mental Health Emergency Note Release [facility] release signed:: Yes Reason for Visit Client took an old prescription while she was intoxicated. In the last 2 weeks has the pt presented for ES prior to today?: Unknown Client Information Client is: Adult Outpatient Well Housed: Yes Non Suicidal Self Injury Current: No History: No Safety Risk/Harm to Self or Others Current Ideation to Harm Self or Others: No Risk: Does risk to harm exist?: No Risk: N/A Duty to warn indicated: No Asssessment/Mental Status Appearance: Disheveled Attitude: Cooperative Behavior: Poor impulse control Speech: Normal Affect: Cogruent with mood Mood: Stressed Thought process: Unremarkable Hallucinations: No evidence Delusions: No evidence Attention: Wandering Perception: Not impaired Orientation: Fully orientated Memory: Intact Insight: Good Judgement: Good Neurovegetative Symptoms Sleep: No change (Client reports she slept the best she could while in the hospital, about 8-9 hours.) Appetitie: Increase (Client reports she has eaten really well since being in the hosptial, but was eating about 2 meals daily prior.) Interests: Increase (Client reports she is slowly becoming more interested in doing things.) Energy: Increase Libido: Not applicable Substance Use: Do you use nicotine?: Yes Have you used substances in the last 7 days?: yes, Client has used alcohol. Client reports she drinks 2-3 drinks daily, but the day she took her medications she reports being very very drunk. Additional Issues: Assaultive/Threatening Behavior: No Medical Concerns: No Client engaged in active self harm w/weapon: No Threatening to run away: No Child reported abuse/neglect: No Voluntarily presenting for services: Yes Domestic violence is a concern: No Impression LYLY is at [facility] due to being intoxicated and taking an old prescription she had in her cabinet. LYLY reports she took this prescription to 'get high'. LYLY reports she was severely intoxicated and wanted to feel even more intoxicated when doing so. She states this incident scared her and she would never do something like that again. LYLY reports her intent was not to by suicide and she does not want to , she wants to continue living for her children. LYLY scored an 11/27 on the PH Q-9 and reports she has been getting better over the past few months. LYLY has not thought about intentionally harming herself in about two to three months. LYLY reports she really regrets her decision and she is embarrassed. It does not appear LYLY was trying to end her life during this overdose. LYLY is safe to return home with her natural supports. Resources Reosurces reviewed and given:: [facility] and [facility] Plan/Disposition Recommended Disposition: Therapy (Client has an upcoming therapy appointment next week.). Plan: LYLY and this clinician made a safety plan together. LYLY plans to go spend time at her dads. LYLY reports she is happy to go home and be able to get rid of those medications. LYLY will check in with ES at 9am on FridayApril 15. Person reported agreement to plan: Yes Reports/communication Outcome discussed with: Other (Airam from Care Managment )
--- NOTE | 2022-04-12 13:29 | W.PM.DS.N ---
Date of service: 04/12/22 Time of Service: 13:29 DS: Diagnosis Discharge Diagnosis (1) Overdose: Status: Acute (2) Suicide attempt: Status: Acute (3) Acute alcohol intoxication: Status: Acute (4) Depressive disorder: Status: Chronic (5) Generalized anxiety disorder: Status: Chronic (6) Alcohol use disorder: (7) Attention deficit hyperactivity disorder (ADHD): Status: Chronic (8) Hypomagnesemia: Status: Resolved (9) Cigarette smoker: Status: Chronic (10) Acute hypokalemia: Status: Resolved Discharge Plan Disposition Patient Disposition: HOME Condition: Stable Discharge Details Reason For Visit: Accidental Overdose Admit Date/Time: 04/11/22 02:44 Admit Provider: Tj Carranza Attending Provider: Tj Carranza [facility]: Ms Schmid is a 41 year old female with PMHx of depression, anxiety, alcohol abuse, ADHD, who was observed on [facility] hospitalist service from 04/11/22 until 04/12/22 having presented after an intentional overdose of wellbutrin while intoxicated with alcohol. The patient did present hallucinating, anxious, and with blurred vision. She received IVF, supportive care, and her low potassium and magnesium were repleted. She showed no signs of alcohol withdrawal on this admission.She was medically cleared and was evaluated by mental health who felt that the patient would be appropriate for discharge home with a safety plan with [facility]. The patient is to check in with [facility] on 04/15 at 9 am. Her PCP is to follow results of her bloodwork for potassium and magnesium in 1 week. Care for patient as well as completion of her discharge on the day of discharge took 35 minutes. Home Meds and New Rx's Prescriptions: New Nicotrol 10 mg Cartridge 1 inh inhalation Q2H PRN PRNQty: 168 0RF Mag 64 64 mg Tablet,Delayed Release (Dr/Ec) 64 mg PO BID Qty: 60 0RF thiamine mononitrate (vit B1) [Vitamin B-1 (mononitrate)] 100 mg Tablet 100 mg PO QAM Qty: 30 0RF multivitamin [Multiple Vitamins] Tablet 1 tab PO QAM Qty: 30 0RF Continued Mirena 20 mcg/24 hours (6 yrs) 52 mg intrauterine device 1 device intrauterine ONCE lisdexamfetamine 50 mg capsule 50 mg PO DAILY MDD 1 pill Qty: 28 0RF lorazepam 1 mg tablet 1 mg PO QHS PRN (Reason: sleep) Qty: 30 0RF Discontinued bupropion HCl [Wellbutrin XL] 150 mg tablet extended release 24 hr 150 mg PO DAILY Qty: 90 3RF Rx Instructions: Take 1 tablet daily Discharge Instructions Instructions: How to Stop Smoking (DC), Depression (DC), Abuse of Alcohol (DC), Suicide Prevention (DC) Additional Instructions: Contact [facility] and/or return to the ER with any thoughts of suicide. Return to the hospital with any fever, bleeding, chest pain, or shortness of breath. Followup with [facility] as per the safety plan. You should seek to stop smoking and drinking. Care Plan Goals: Home with [facility] follow up and a safety plan Stand Alone Forms: Nursing Discharge Form Referrals: [facility] [Outside] - 04/15/22 9:00 am (Check in ) Pauline Wagner NP [Primary Care Provider] - 04/19/22 7:00 am Activity:: Activity as Tolerated Equipment/Supplies:: No Equipment Needed Diet:: As Tolerated Discharge Orders Discharge Orders: Discharge Order (Routine); Ordered 04/12/22 Ordered By: Holly Becerra Other Ambulatory Orders: Basic Metabolic Panel (Routine) Timeframe: 20220418 Location: Determined by Patient Ordered By: Holly Becerra Magnesium (Routine) Timeframe: 20220418 Location: Determined by Patient Ordered By: Holly Becerra DS: Summary Time Spent with Patient providing and/or coordinating discharge services: Greater than 30 minutes Status at Discharge Functional status at discharge: independent ambulation Overall status at discharge: patient is back to baseline Mental Status: mental status grossly normal Speech and Movement: speech and movement normal Mood: congruent mood Affect: normal affect Exam Narrative Exam Narrative: General: Pleasant female, A&Ox3, NAD HEENT: EOMI, MMM Heart: RRR, no m/r/g Lungs: CTAB Abdomen: soft, nontender, nondistended Extremities: no edema BLEs Psych Mental Status: mental status grossly normal Speech and Movement: speech and movement normal Mood: congruent mood Affect: normal affect DS: Data Vitals/I&O Vitals and I&O: Vital Signs Temperature 36.7 C 04/12/22 11:13 Temperature Source Tympanic 04/12/22 11:13 Pulse 91 H 04/12/22 11:28 Pulse Rhythm Regular 04/12/22 07:54 Pulse 101 H 04/11/22 03:16 Respiratory Rate 16 04/12/22 11:13 Respiratory Effort 04/12/22 07:54 Respiratory Depth Normal 04/12/22 07:54 Respiratory Pattern Normal 04/12/22 07:54 Blood Pressure 123/86 04/12/22 11:13 Blood Pressure Mean 97 04/11/22 03:16 Blood Pressure Position Supine 04/10/22 23:40 Pulse Oximetry 98 04/12/22 11:13 Oxygen Delivery Method Room Air 04/12/22 11:13 Oxygen Flow Rate 0 04/12/22 11:13 Pain Level 0 04/12/22 11:13 Intake & Output 04/11/22 04/12/22 04/12/22 23:59 11:59 23:59 Intake Total 240 / 2896.25 240 / 240 Output Total 700 / 1200 800 / 800 Balance -460 / 1696.25 -800 / -560 240 / -560 Weight 47.8 kg Intake: Oral 240 / 240 240 / 240 Output: Urine 700 / 1200 800 / 800 Other: Urine Color Yellow Pale Urine Appearance Clear Clear Urine Odor None Voiding Methods Toilet Toilet Data Completed and Pending Labs on day of discharge: Labs from last 24 hours 04/12/22 04/12/22 04/12/22 06:17 06:17 06:17 WBC 6.91 RBC 4.51 Hgb 16.9 H D Hct 47.1 H MCV 104 H MCH 37.5 H MCHC 35.9 RDW 12.3 Plt Count 223 MPV 10.3 Immature Gran % 0.4 Neutrophils % 64.6 Lymphocytes % 22.0 Monocytes % 11.6 Eosinophils % 1.0 Basophils % 0.4 Nucleated RBC % 0.0 Absolute Neutrophils 4.46 Absolute Lymphocytes 1.52 Absolute Monocytes 0.80 Absolute Eosinophils 0.07 Absolute Basophils 0.03 Sodium 138 Potassium 4.1 Chloride 104 Carbon Dioxide 26.4 Anion Gap 7.6 BUN 9 Creatinine 0.6 Est GFR (CKD-EPI 2020) 116.30 Glucose 96 Calcium 8.8 Phosphorus 3.4 Magnesium 2.2 Total Bilirubin 1.2 H AST 36 ALT 50 Alkaline Phosphatase 70 Total Protein 6.6 Albumin 3.6 SARS-CoV-2 (PCR) 04/11/22 00:10 WBC RBC Hgb Hct MCV MCH MCHC RDW Plt Count MPV Immature Gran % Neutrophils % Lymphocytes % Monocytes % Eosinophils % Basophils % Nucleated RBC % Absolute Neutrophils Absolute Lymphocytes Absolute Monocytes Absolute Eosinophils Absolute Basophils Sodium Potassium Chloride Carbon Dioxide Anion Gap BUN Creatinine Est GFR (CKD-EPI 2020) Glucose Calcium Phosphorus Magnesium Total Bilirubin AST ALT Alkaline Phosphatase Total Protein Albumin SARS-CoV-2 (PCR) Negative PFSH All Active Problems (Updated 04/12/22 @ 13:33 by Holly Becerra MD) Suicide attempt (Acute) Acute alcohol intoxication (Acute) Overdose (Acute) Generalized anxiety disorder (Chronic) Panic attacks (Acute) Hyperlipidemia (Chronic) Depressive disorder (Chronic) Attention deficit hyperactivity disorder (ADHD) (Chronic) Cigarette smoker (Chronic) IUD surveillance (Chronic) Mirena IUD inserted 04/16/2018 Medical History Alcohol use disorder Surgical History No significant past surgical history Family History Mother Essential hypertension Father Alcohol abuse Asthma Substance abuse Sister Depression Brother Alcohol abuse Substance abuse Daughter No problems noted. Daughter No problems noted. Maternal Grandfather , age 88 ALS (amyotrophic lateral sclerosis) Maternal Grandmother , age 67 Hyperlipidemia Cancer Paternal Grandfather , age 88 Prostate cancer Paternal Grandmother , age 89 Heart disease Sister No problems noted. Social History Smoking/Tobacco Use Status: Current-Occasional Tobacco Type: cigarettes Tobacco: How many years used: 20 Quit status: not considering quitting Second Hand Exposure: Yes Smoking risk assessment performed?: Yes Alcohol Intake: current Alcohol Intake frequency: a few times a week Alcohol type: wine Substance use type: marijuana Caregiver/Support person: No Household members: spouse and children Housing: house Communication Needs: None Do you need help understanding health information?: Never Pets and animals: Yes Pets and animals: cat(s) and dog(s) Sexually active: Yes Do you think of yourself as: straight/heterosexual Current gender identity: female What is your relationship status?: How often do you talk on the phone with friends or family?: three or more times per week How often do you get together with friends or relatives?: once per week How often do you attend lutheran or scientologist services?: 4 or more times per year Do you belong to any clubs or organized social groups?: no Panel score (0-1 are the most socially isolated patients): 3 Duration: < 15 minutes/day Frequency: decline to answer Cheryl/Restorationist: Quaker Special cheryl needs: No Seatbelt use: always Helmet use: Yes Helmet use: always Drive intox or ride w/intox electric truck driver: No Do you feel safe at home: Yes Do you feel safe in your relationship?: Yes
--- NOTE | 2022-04-12 15:32 | PDOC.CMDIS ---
- If Service Date Differs Date of service: 04/12/22 Time of Service: 15:32 LACE Index Scoring Tool - Questions: Length of Stay (in days): 1 Acuity (Admit via E.D.?): Yes E.D. Visits: 2 - Answers: Total Score: 6 Risk of Readmission: Low Risk Care Management Discharge Reason for Hospitalization: Accidental Overdose Discharge Plan: Shellie will return home on [facility] safety plan, coordinated with Tamanna of [facility] Crisis. Tamanna scanned plan to who provided to , Machine Maintenance Technician for DC. Please refer to plan for further information. Shellie will transport via private vehicle with family, follow safety plan and discharge instructions and follow up with community providers. Patient/Family Education Needs: Review discharge instructions, discuss Ask Me Three. - MH Services (Omit if N/A) Current MH Services: [facility] (Crisis)
== END 2022-04-12 14:45 | disposition home or self-care (01) ==
LOC: ER 04-11 03:01 → MS 04-11 03:21
PROVIDERS: Internal Medicine; Admitting Provider Family Medicine; Emergency Provider Student in an Organized Health Care Education/Training Program; PCP Nurse Practitioner Family; Visit Provider Family Medicine
DX: T43.292A Poisoning by other antidepressants, intentional self-harm, initial encounter (principal); T51.0X2A Toxic effect of ethanol, intentional self-harm, initial encounter; R44.1 Visual hallucinations; R41.82 Altered mental status, unspecified; F17.210 Nicotine dependence, cigarettes, uncomplicated; E78.5 Hyperlipidemia, unspecified; I25.2 Old myocardial infarction; R00.0 Tachycardia, unspecified; E87.6 Hypokalemia; F32.A Depression, unspecified; Z20.822 Contact with and (suspected) exposure to COVID-19; Z79.899 Other long term (current) drug therapy; F41.0 Panic disorder [episodic paroxysmal anxiety]; F90.9 Attention-deficit hyperactivity disorder, unspecified type; F12.90 Cannabis use, unspecified, uncomplicated; F10.129 Alcohol abuse with intoxication, unspecified
CPT/HCPCS: 36415; 80048; 80053; 80076; 80307; 81025; 87635; 93005; 96361; 96365; 96366; 96375; 96376; 99285; J1650; 80320; 80329; 83735; 84100; 84439; 84443; 85025; 93010; 99217; 99220; G0378; J2405; J3475; J3480; J3490

== ENCOUNTER 2022-09-13 07:39 | Outpatient (CLI) | payer MEDICAID, SELFPAY ==
[2022-09-13 12:36] LABS: HCT 43.5 % (36.0-46.0); HGB 14.8 g/dL (11.2-15.7); MCH 35.8 pg (27.0-33.0); MCV 105 fL (80-95); Platelet Count 306 10^3/uL (130-400); RBC 4.13 10^6/uL (3.93-5.22); RDW 12.3 % (11.7-14.6); RDW-SD 48.2 fL; WBC 6.51 10^3/uL (4.4-10.8)
[2022-09-13 13:25] LABS: ALT 39 U/L (14-59); AST 39 U/L (15-37); Albumin 3.9 g/dL (3.4-5.0); Alkaline Phosphatase 69 U/L (46-116); Anion Gap 8.4 mmol/L (3-11); BUN 11 mg/dL (7-18); Bilirubin, Total 0.5 mg/dL (0.2-1.0); CO2 26.6 mmol/L (21.0-32.0); CREATININE 0.7 mg/dL (0.55-1.02); Calcium 8.9 mg/dL (8.5-10.1); Calculated LDL 165 mg/dL (<100); Chloride 104 mmol/L (98-107); Cholesterol 253 mg/dL (<200); Estimated GFR 111.36 (mL/min/1.73m2); Folate 6.1 ng/mL (8.6-20.0); Glucose 111 mg/dL (74-106); HDL Cholesterol 74 mg/dL (40-60); Potassium 3.7 mmol/L (3.5-5.1); Sodium 139 mmol/L (136-145); TSH (W/Ref FT4) 2.04 uIU/mL (0.36-3.74); Total Protein 7.2 g/dL (6.4-8.2); Triglyceride 73 mg/dL (<150); Vitamin B12 289 pg/mL (193-986)
== END 2022-09-13 07:40 | disposition home or self-care (01) ==
LOC: LOS 07:39
PROVIDERS: PCP Nurse Practitioner Family; Referring Provider Nurse Practitioner Family; Visit Provider Nurse Practitioner Family
DX: E78.5 Hyperlipidemia, unspecified (principal); F10.20 Alcohol dependence, uncomplicated
CPT/HCPCS: 36415; 80053; 80061; 85027; 82607; 82746; 84443

== ENCOUNTER 2022-12-10 12:04 | Emergency (ER) | payer MEDICAID, SELFPAY ==
[2022-12-10 12:12] VITALS: BP 157/111; PULSE 120; RESP 18; TEMP 36.7; O2SAT 99
--- NOTE | 2022-12-10 13:06 | NUR.NOTE ---
Nursing Note: Pt comfortable in room with arm blanket and call light. Pt speaking in full sentences and in no signs of acute distress. Pt endorses 1-pack / day smoking habit and high levels of stress secondary to divorce.
--- NOTE | 2022-12-10 13:08 | ED.GENADUL_ITS ---
Discharge Plan Disposition Patient Disposition: Home Condition: Stable Discharge Details Clinical Impression: Cough, Shortness of breath Primary Care Provider: Pauline Wagner ED Provider: Gage Aparicio Home Meds and New Rx's Prescriptions: New doxycycline hyclate 100 mg tablet 100 mg PO BID Qty: 14 0RF Continued losartan 25 mg tablet 25 mg PO DAILY Qty: 90 0RF Mirena 20 mcg/24 hours (6 yrs) 52 mg intrauterine device 1 device intrauterine ONCE folic acid 1 mg tablet 1 mg PO DAILY Qty: 90 3RF thiamine mononitrate (vit B1) [Vitamin B-1 (mononitrate)] 100 mg tablet 100 mg PO QAM Qty: 90 3RF multivitamin [Multiple Vitamins] Tablet 1 tab PO QAM Qty: 90 3RF Discharge Instructions Instructions: Dyspnea (ED), Acute Cough (ED) Additional Instructions: follow up with your primary care provider in 1-2 weeks If you feel more ill, have worsening trouble breathing or severe pain return to the emergency department Medical Decision Making 42 yo female with hx of ptsd, anxiety, adhd, htn, who comes in with one month of cough that is severe in the morning and improves throughout the day going on for over 20 days. She denies fevers, chills, chest pressure, abdominal pain. She does smoke, denies alcohol or drug use. She noticed lesions on her legs yesterday as well. She arrives stable though is tachycardic in the 120's, normal gait and caox4 with clear speech. She has apical wheezing bilaterally otherwise clear lung sounds, no jvd, no murmurs. She has no leg swelling or calf tenderness, does have multiple small 2-3cm in diameter flat lesions that appear as small contusions on her legs, they are not painful or tender to touch, not warm to touch. No lesions on the hands or feet. They do not have the appearance of purpura or petechiae. She has no lesions to suggest janeway lesions or other stigmata of endocarditis. Unclear etiology for the leg lesions, given her cough and tachycardia will proceed with a duoneb to see if it provides any symptom relief, will also obtain ekg/troponin, cbc, cmp, xray and d dimer given her tachycardia. labs unremarkable, per years algorithm doesn't require further workup with cta. She is feeling better, stable vitals, given a month of cough will start tx for bronchitis with doxy, she will f/u with pcp, return precautions given Differential Diagnosis Differential Diagnosis: copd, asthma, pneumonia, covid, pe Imaging Data Radiologic Study: Attestation: I personally reviewed and interpreted this imaging study as follows: Imaging: X-Ray My impression: no acute findings Lab Data Lab results reviewed: Yes I reviewed the patient's lab results. HPI General Mode of arrival: ambulatory . Date/Time Provider Initiated Documentation: 12/10/22 12:47 . Limitations to Documentation: no limitations . Information obtained by: patient . History of Present Illness 42 year old F presents to the emergency department with the chief complaint of cough, described as moderate, Patient started experiencing this day(s) (21) and it has been constant. No relieving factors improve symptom(s), No exacerbating factors reported . Patient notes denies chest pain and fever/chills. Patient did receive the following treatments prior to arrival, none Related Data Home Medications Medication Instructions Recorded Confirmed levonorgestrel 21 mcg/24 hours (8 1 device intrauterine ONCE 10/05/20 10/30/22 yrs) 52 mg intrauterine device (Mirena) losartan 25 mg tablet 25 mg PO DAILY #90 tabs 09/13/22 10/30/22 folic acid 1 mg tablet 1 mg PO DAILY #90 tabs 09/20/22 10/30/22 multivitamin (Multiple Vitamins 1 tab PO QAM #90 tabs 09/20/22 10/30/22 tablet) thiamine mononitrate (vit B1) 100 100 mg PO QAM #90 tabs 09/20/22 10/30/22 mg tablet (Vitamin B-1 (mononitrate)) doxycycline hyclate 100 mg tablet 100 mg PO BID #14 tabs 12/10/22 Previous Rx's Medication Instructions Recorded losartan 25 mg tablet 25 mg PO DAILY #90 tabs 09/13/22 folic acid 1 mg tablet 1 mg PO DAILY #90 tabs 09/20/22 multivitamin (Multiple Vitamins 1 tab PO QAM #90 tabs 09/20/22 tablet) thiamine mononitrate (vit B1) 100 100 mg PO QAM #90 tabs 09/20/22 mg tablet (Vitamin B-1 (mononitrate)) doxycycline hyclate 100 mg tablet 100 mg PO BID #14 tabs 12/10/22 Allergies Allergy/AdvReac Type Severity Reaction Status Date / Time bupropion [From Wellbutrin] AdvReac Intermediate Hallucinati Verified 10/30/22 07:43 ons lisdexamfetamine AdvReac Intermediate Tachycardia Verified 10/30/22 07:43 [From Vyvanse] and Hypertension atomoxetine [From Strattera] AdvReac Mild OCD like Verified 10/30/22 07:43 behavior General Stated Complaint: GenMedical JOSE: 3 Review of Systems All systems reviewed & are unremarkable except as noted in HPI and below Constitutional Constitutional: Denies chills, Denies fever(s) and Denies weakness Cardiovascular Cardiovascular: Denies chest pain and Denies dyspnea Respiratory Respiratory: Denies dyspnea Gastrointestinal Gastrointestinal: Denies abdominal pain, Denies nausea and Denies vomiting Neurologic Neurologic: Denies weakness PFSH All Active Problems (Updated 12/10/22 @ 14:51 by Gage Aparicio MD) Cough (Acute) Shortness of breath (Acute) Hypertension (Chronic) Alcohol use disorder, moderate, dependence (Chronic) Major depressive disorder with psychotic features (Acute) Generalized anxiety disorder with panic attacks (Chronic) PTSD (post-traumatic stress disorder) (Chronic) Hyperlipidemia (Chronic) Attention deficit hyperactivity disorder (ADHD) (Chronic) Abnormal Papanicolaou smear of cervix with positive human papilloma virus (HPV) test (Chronic) 4/15--LGSIL, +HPV 2/17--LGSIL, +HPV 4/17--Colposcopy=CINI 6/18--negative pap and hpv 9/19--Negative Pap, +HPV Fibroadenoma of left breast (Chronic) Cigarette smoker (Chronic) IUD surveillance (Chronic) Mirena IUD inserted 04/16/2018 Medical History (Updated 12/10/22 @ 14:51 by Gage Aparicio MD) Acute alcohol intoxication (~03/2022) Suicide attempt (~03/2022) via wellbutrin overdose Surgical History No significant past surgical history Family History Mother Essential hypertension Father Alcohol abuse Asthma Substance abuse Sister Depression Brother Alcohol abuse Substance abuse Daughter No problems noted. Daughter No problems noted. Maternal Grandfather , age 88 ALS (amyotrophic lateral sclerosis) Maternal Grandmother , age 67 Hyperlipidemia Cancer Paternal Grandfather , age 88 Prostate cancer Paternal Grandmother , age 89 Heart disease Sister No problems noted. Social History Smoking/Tobacco Use Status: Current-Occasional Tobacco Type: cigarettes Tobacco: How many years used: 20 Quit status: not considering quitting Second Hand Exposure: Yes Smoking risk assessment performed?: Yes Alcohol Intake: current Alcohol Intake frequency: a few times a week Alcohol type: wine Substance use type: marijuana Caregiver/Support person: No Household members: spouse and children Housing: house Communication Needs: None Do you need help understanding health information?: Never Pets and animals: Yes Pets and animals: cat(s) and dog(s) Sexually active: Yes Do you think of yourself as: straight/heterosexual Current gender identity: female What is your relationship status?: How often do you talk on the phone with friends or family?: three or more times per week How often do you get together with friends or relatives?: once per week How often do you attend denominational or denominational services?: 4 or more times per year Do you belong to any clubs or organized social groups?: no Panel score (0-1 are the most socially isolated patients): 3 Duration: < 15 minutes/day Frequency: decline to answer Cheryl/Baptism: Orthodoxy Special cheryl needs: No Seatbelt use: always Helmet use: Yes Helmet use: always Drive intox or ride w/intox stunt driver: No Do you feel safe at home: Yes Do you feel safe in your relationship?: Yes Exam Const General: no acute distress Orientation: alert [facility] Head: normal to inspection Ears: external ears normal General nose exam: external nose normal Mouth: moist mucous membranes Eyes General: appearance normal, both eyes and all related structures Neck Neck: normal visual inspection Resp Effort & Inspection: normal respiratory effort and able to speak in complete sentences Auscultation: wheezes Cardio Jugular venous pressure: no JVD Rate: regular rate Heart Sounds: no murmurs GI Palpation: soft and nontender Skin General skin exam: elasticity normal Neuro General: patient alert and patient oriented x3 Extrem General: full ROM and capillary refill normal Psych Mental Status: mental status grossly normal Course Vital Signs Vital signs: Vital Signs Temperature 36.7 C 12/10/22 12:12 Pulse 120 H 12/10/22 12:12 Respiratory Rate 18 12/10/22 12:12 Blood Pressure 157/111 H 12/10/22 12:12 Pulse Oximetry 99 12/10/22 12:12 Temperature 36.7 C 12/10/22 12:12 Temperature Source Tympanic 12/10/22 12:12 Pulse 120 H 12/10/22 12:12 Respiratory Rate 18 12/10/22 12:12 Respiratory Effort Normal 12/10/22 12:18 Respiratory Depth Normal 12/10/22 12:18 Respiratory Pattern Normal 12/10/22 12:18 Blood Pressure 157/111 H 12/10/22 12:12 Pulse Oximetry 99 12/10/22 12:12 Oxygen Delivery Method Room Air 12/10/22 12:12 Oxygen Flow Rate 0 12/10/22 12:12 Pain Level 4 12/10/22 12:12 PAWSS Have you Been Recently Intoxicated or Drunk Within the Last 30 days?: No Have you Ever Experienced Previous Episodes of Alcohol Withdrawal?: No Have you ever Experienced Withdrawal Seizures?: No Have you ever Experienced Delirium Tremens(DT)s?: No Have you ever undergone Alcohol Rehabilitation Treatment (i.e, inpt ot outpatient treatment programs)?: No Have you ever Experienced Blackouts?: No Have you ever Combined Alcohol with other Downers within the last 90 days?: No Have you ever Combined Alcohol with any other Substance of Abuse during the last 90 days?: No Positive Blood Alcohol level on Presentation? [PCS.BAL]: No Evidence of Increased Autonomic Activity (i.e. HR>120, tremor, sweating, agitation, nausea)?: No Result: 0
[2022-12-10 13:26] VITALS: RESP 1; RESP 18
[2022-12-10] MEDS: Normal Saline 1,000 ML 1000 ML IV (13:26)
[2022-12-10] MEDS: Albuterol/Ipratropium 3 ML UPD VIAL UPD (13:26)
[2022-12-10 13:32] LABS: Abs Immature Grans 0.04 10^3/uL (0.0-0.06); Absolute Basophil Count 0.07 10^3/uL (0.0-0.2); Absolute Eosinophil Count 0.04 10^3/uL (0.0-0.7); Absolute Lymphocyte Count 1.37 10^3/uL (1.2-3.4); Absolute Neutrophil Count 6.03 10^3/uL (1.2-6.7); Basophils % 0.8; Eosinophils % 0.5; HCT 50.1 % (36.0-46.0); HGB 17.7 g/dL (11.2-15.7); Immature Grans % 0.5; Lymphocytes % 16.6; MCH 36.3 pg (27.0-33.0); MCHC 35.3 % (32.0-36.0); MCV 103 fL (80-95); MPV 9.6 fL (8.0-11.0); Monocytes % 8.5; Neutrophils % 73.1; Platelet Count 272 10^3/uL (130-400); RBC 4.87 10^6/uL (3.93-5.22); RDW 13.1 % (11.7-14.6); RDW-SD 50.3 fL; WBC 8.25 10^3/uL (4.4-10.8)
[2022-12-10 13:46] LABS: PTT Activated 26.6 sec (21.5-31.9); Prothrombin Time 9.9 sec (9.3-11.0)
[2022-12-10 13:56] LABS: ALT 129 U/L (14-59); AST 170 U/L (15-37); Albumin 4.9 g/dL (3.4-5.0); Alkaline Phosphatase 110 U/L (46-116); Anion Gap 14.3 mmol/L (3-11); BUN 8 mg/dL (7-18); Bilirubin, Total 1.1 mg/dL (0.2-1.0); CO2 24.7 mmol/L (21.0-32.0); CREATININE 0.9 mg/dL (0.55-1.02); Calcium 9.6 mg/dL (8.5-10.1); Chloride 98 mmol/L (98-107); Estimated GFR 82.37 (mL/min/1.73m2); Glucose 84 mg/dL (74-106); Potassium 3.3 mmol/L (3.5-5.1); Sodium 137 mmol/L (136-145); Total Protein 8.9 g/dL (6.4-8.2); Troponin I < 50 ng/L (<or=60)
[2022-12-10 14:05] LABS: Magnesium 1.7 mg/dL (1.8-2.4); TSH (W/Ref FT4) 2.03 uIU/mL (0.36-3.74)
[2022-12-10 14:07] LABS: COVID-19 PCR Negative (Negative); Influenza A PCR Negative (Negative); Influenza B PCR Negative (Negative); RSV PCR Negative (Negative)
[2022-12-10 14:08] LABS: Source Nasopharynx
[2022-12-10 14:14] LABS: D-Dimer 609 ng/mlFEU (<500)
--- NOTE | 2022-12-10 14:18 | DI.RAD_ITS ---
Exam(s) XR PORTABLE CHEST AP EXAM: XR PORTABLE CHEST AP CLINICAL HISTORY: cough. TECHNIQUE: 2D digital imaging was performed. COMPARISON: Prior chest x-ray 08/02/2019 FINDINGS: Single AP portable view. Heart size is upper normal. The mediastinum is not widened. Lungs are clear. No infiltrates nor obvious pleural effusions. IMPRESSION: No acute pulmonary findings on this single AP portable view of the chest. DATA REPOSITORY: RADIATION DOSE DELIVERED:
[2022-12-10 14:59] VITALS: BP 122/76; PULSE 100; RESP 18; O2SAT 95
[2022-12-10] MEDS: Albuterol HFA 8 GM 60 PUFF INH IH (15:01)
--- NOTE | 2022-12-10 15:02 | NUR.NOTE ---
Nursing Note: Pt given albuterol inhaler and spacer. This RN demonstrated use prior to D/c. Pt ambulated to waiting room in no signs of acute distress. Pt thanked this RN for care.
== END 2022-12-10 14:59 | disposition home or self-care (01) ==
PROVIDERS: Emergency Provider Emergency Medicine; PCP Nurse Practitioner Family
DX: R05.9 Cough, unspecified (principal); R06.02 Shortness of breath; F17.210 Nicotine dependence, cigarettes, uncomplicated
CPT/HCPCS: 80053; 87637; 94640; 96360; 99284; 71045; 83735; 84443; 84484; 85025; 85379; 85610; 85730; J7620

== ENCOUNTER 2023-01-07 08:09 | Emergency (ER) | payer MEDICAID, SELFPAY ==
[2023-01-07 08:10] VITALS: BP 158/109; PULSE 96; RESP 16; TEMP 36.8; O2SAT 98
--- NOTE | 2023-01-07 08:45 | DI.RAD_ITS ---
Exam(s) XR CHEST 2V PA LATERAL EXAM: XR CHEST 2V PA LATERAL CLINICAL HISTORY: cough, fever, right chest pain. TECHNIQUE: 2D digital imaging was performed. COMPARISON: CR XR PORTABLE CHEST AP from 12/10/2022 FINDINGS: 2 views: Heart size is normal. The mediastinum is not widened. Lungs are clear. No infiltrates nor pleural effusions. Hyperinflation again noted. IMPRESSION: No acute pulmonary findings.Hyperinflation again evident. DATA REPOSITORY: RADIATION DOSE DELIVERED:
--- NOTE | 2023-01-07 09:30 | DI.CT_ITS ---
Exam(s) CT CHEST WO EXAM: CT CHEST WO CLINICAL HISTORY: recurrent right chest wall pain, 6-10, tobacco use. TECHNIQUE: Multi planar reconstructions were performed. CONTRAST MATERIAL: None COMPARISON: No exams were available for comparison FINDINGS: CHEST: LUNGS: There are no infiltrates nor pleural effusions. No ominous pulmonary nodules evident. No pne umothorax. MEDIASTINUM: There is no obvious hilar nor mediastinal adenopathy. Visualized thyroid unremarkable.No obvious axillary adenopathy CARDIAC: Heart size is normal. There is no pericardial effusion.Caliber of the thoracic aorta is wit hin normal limits. VISUALIZED UPPER ABDOMEN:No adrenal masses. No splenomegaly. Liver is diffusely hypodense implying steatosis. OSSEOUS: There is a subacute appearing partially healed nondisplaced fracture of the lateral aspect o f the right 5th rib. No other fractures identified.. OTHER: Partially calcified nodule noted in the lateral aspect of the left breast, this measuring appr oximately 1.4 by 1.2 cm. IMPRESSION: 1. There is a partially healed nondisplaced fracture of the right 5th rib. No pneumothorax. No othe r rib fractures identified. 2. No focal lung findings. No pleural effusions. 3. Incidentally noted is a lobulated partially calcified 14 x 12 mm nodule in the lateral aspect of t he left breast. Follow-up breast imaging recommended Findings called by myself to ER physician RADIATION DOSE DELIVERED: 332.69mGy.cm Total DLP DATA REPOSITORY: All CT scans at this facility are submitted to the National Radiology Data Registry (NRDR) Dose Index Registry (DIR) with the [employer] (A[employer]). RADIATION OPTIMIZATION: All CT scans at this facility use at least one of these dose optimization te chniques: automated exposure control; mA and/or kV adjustment per patient size (includes targeted exa ms where dose is matched to clinical indication); or iterative reconstruction.
--- NOTE | 2023-01-07 11:25 | ED.GENADUL_ITS ---
Discharge Plan Disposition Patient Disposition: Home Condition: Stable Discharge Details Clinical Impression: Chest pain, Cough Primary Care Provider: Pauline Wagner ED Provider: Ronda Eaton Home Meds and New Rx's Prescriptions: New prednisone 20 mg tablet 40 mg PO ONCE Qty: 10 0RF doxycycline hyclate 100 mg tablet 100 mg PO BID Qty: 20 0RF nicotine 10 mg cartridge 1 inh inhalation 4-6XD PRNQty: 168 0RF Continued losartan 25 mg tablet 25 mg PO DAILY Qty: 90 0RF Mirena 20 mcg/24 hours (6 yrs) 52 mg intrauterine device 1 device intrauterine ONCE folic acid 1 mg tablet 1 mg PO DAILY Qty: 90 3RF thiamine mononitrate (vit B1) [Vitamin B-1 (mononitrate)] 100 mg tablet 100 mg PO QAM Qty: 90 3RF multivitamin [Multiple Vitamins] Tablet 1 tab PO QAM Qty: 90 3RF doxycycline hyclate 100 mg tablet 100 mg PO BID Qty: 14 0RF Patient Comments: RX complete 01/07/23 CT Discharge Instructions Instructions: Chest Pain (ED), Acute Cough (ED) Additional Instructions: Please follow-up with your primary care physician, I have given you medication to assist you with this stopping smoking Please take the prednisone as prescribed Continue to take deep breaths you do not develop pneumonia Take the antibiotic as prescribed Return earlier should you have new or worsening complaints Referrals: Pauline Wagner, [employer]INE OPERATOR [Primary Care Provider] - Discharge Data Discharge Date/Time-TO BE ENTERED AT DEPARTURE: 01/07/23 11:36 Medical Decision Making 42-year-old female, evaluated in the emergency to [facility] approximately 4 weeks ago and supplied with doxycycline, had full medical work- up at that time Secondary to persistent pain, chest x-ray was ordered which does not show evidence of acute abnormality, CT was ordered for further differentiation given persisting pain and tobacco use, CT shows evidence of fifth rib fracture Long discussion regarding smoking cessation, nicotine patches supplied Steroids initiated I did give patient another prescription for doxycycline and encouraged her not to take this unless her symptoms become worse I suspect she has some developing emphysema based on the appearance of her lungs on chest x-ray She will continue to take deep breaths, full inhalation exhalation spirometry, at least 12 times a day to prevent pneumonia from forming Return precautions reviewed and patient expressed understanding, discharged home in stable condition with stable vitals, repeat blood pressure 148/89 Patient has pulmonary embolism rule out criteria negative HPI General Date/Time Provider Initiated Documentation: 01/07/23 08:19 . HPI Narrative: This 42-year-old female presents with report of recurrent upper respiratory symptoms with right rib pain. States that she was treated for pneumonia approximately 3 weeks ago and was feeling marked improvement in symptoms when she developed some recurrent pain this past week. She has had cough. She denies any hemoptysis. She denies any calf pain or swelling, recent flights, surgeries, long drives. Denies history of coagulopathy. Denies calf pain or swelling. Smokes tobacco, 1 pack daily, denies any additional illicit drug use. Related Data Home Medications Medication Instructions Recorded Confirmed levonorgestrel 21 mcg/24 hours (8 1 device intrauterine ONCE 10/05/20 01/07/23 yrs) 52 mg intrauterine device (Mirena) losartan 25 mg tablet 25 mg PO DAILY #90 tabs 09/13/22 01/07/23 folic acid 1 mg tablet 1 mg PO DAILY #90 tabs 09/20/22 01/07/23 multivitamin (Multiple Vitamins 1 tab PO QAM #90 tabs 09/20/22 01/07/23 tablet) thiamine mononitrate (vit B1) 100 100 mg PO QAM #90 tabs 09/20/22 01/07/23 mg tablet (Vitamin B-1 (mononitrate)) doxycycline hyclate 100 mg tablet 100 mg PO BID #14 tabs 12/10/22 12/11/22 doxycycline hyclate 100 mg tablet 100 mg PO BID #20 tabs 01/07/23 nicotine 10 mg inhalation cartridge 1 inh inhalation 4-6XD PRN #168 ea 01/07/23 prednisone 20 mg tablet 40 mg PO ONCE #10 tabs 01/07/23 Previous Rx's Medication Instructions Recorded losartan 25 mg tablet 25 mg PO DAILY #90 tabs 09/13/22 folic acid 1 mg tablet 1 mg PO DAILY #90 tabs 09/20/22 multivitamin (Multiple Vitamins 1 tab PO QAM #90 tabs 09/20/22 tablet) thiamine mononitrate (vit B1) 100 100 mg PO QAM #90 tabs 09/20/22 mg tablet (Vitamin B-1 (mononitrate)) doxycycline hyclate 100 mg tablet 100 mg PO BID #14 tabs 12/10/22 doxycycline hyclate 100 mg tablet 100 mg PO BID #20 tabs 01/07/23 nicotine 10 mg inhalation cartridge 1 inh inhalation 4-6XD PRN #168 ea 01/07/23 prednisone 20 mg tablet 40 mg PO ONCE #10 tabs 01/07/23 Allergies Allergy/AdvReac Type Severity Reaction Status Date / Time bupropion [From Wellbutrin] AdvReac Intermediate Hallucinati Verified 01/07/23 08:17 ons lisdexamfetamine AdvReac Intermediate Tachycardia Verified 01/07/23 08:17 [From Vyvanse] and Hypertension atomoxetine [From Strattera] AdvReac Mild OCD like Verified 01/07/23 08:17 behavior General Stated Complaint: RespSymp JOSE: 3 PFSH All Active Problems (Updated 01/07/23 @ 10:32 by JUAN Juarez) Chest pain (Acute) Cough (Acute) Erythrocytosis (Acute) Easy bruising (Acute) Cough (Acute) Shortness of breath (Acute) Hypertension (Chronic) Alcohol use disorder, moderate, dependence (Chronic) Major depressive disorder with psychotic features (Acute) Generalized anxiety disorder with panic attacks (Chronic) PTSD (post-traumatic stress disorder) (Chronic) Hyperlipidemia (Chronic) Attention deficit hyperactivity disorder (ADHD) (Chronic) Abnormal Papanicolaou smear of cervix with positive human papilloma virus (HPV) test (Chronic) 4/15--LGSIL, +HPV 2/17--LGSIL, +HPV 4/17--Colposcopy=CINI 6/18--negative pap and hpv 9/19--Negative Pap, +HPV Fibroadenoma of left breast (Chronic) Cigarette smoker (Chronic) IUD surveillance (Chronic) Mirena IUD inserted 04/16/2018 Medical History (Updated 01/07/23 @ 10:32 by JUAN Juarez) Acute alcohol intoxication (~03/2022) Suicide attempt (~03/2022) via wellbutrin overdose Surgical History No significant past surgical history Family History Mother Essential hypertension Father Alcohol abuse Asthma Substance abuse Sister Depression Brother Alcohol abuse Substance abuse Daughter No problems noted. Daughter No problems noted. Maternal Grandfather , age 88 ALS (amyotrophic lateral sclerosis) Maternal Grandmother , age 67 Hyperlipidemia Cancer Paternal Grandfather , age 88 Prostate cancer Paternal Grandmother , age 89 Heart disease Sister No problems noted. Social History Smoking/Tobacco Use Status: Current-Occasional Tobacco Type: cigarettes Tobacco: How many years used: 20 Quit status: not considering quitting Second Hand Exposure: Yes Smoking risk assessment performed?: Yes Alcohol Intake: current Alcohol Intake frequency: a few times a week Alcohol type: wine Drug use: Occasionally Substance use type: marijuana Caregiver/Support person: No Household members: spouse and children Housing: house Communication Needs: None Do you need help understanding health information?: Never Pets and animals: Yes Pets and animals: cat(s) and dog(s) Sexually active: Yes Do you think of yourself as: straight/heterosexual Current gender identity: female What is your relationship status?: How often do you talk on the phone with friends or family?: three or more times per week How often do you get together with friends or relatives?: once per week How often do you attend baptism or episcopal services?: 4 or more times per year Do you belong to any clubs or organized social groups?: no Panel score (0-1 are the most socially isolated patients): 3 Duration: < 15 minutes/day Frequency: decline to answer Cheryl/Roman Catholic: Pentecostalism Special cheryl needs: No Seatbelt use: always Helmet use: Yes Helmet use: always Drive intox or ride w/intox medical van driver: No Do you feel safe at home: Yes Do you feel safe in your relationship?: Yes Course Vital Signs Vital signs: Vital Signs Temperature 36.8 C 01/07/23 08:10 Pulse 96 H 01/07/23 08:10 Respiratory Rate 16 01/07/23 08:10 Blood Pressure 158/109 H 01/07/23 08:10 Pulse Oximetry 98 01/07/23 08:10 Temperature 36.8 C 01/07/23 08:10 Temperature Source Temporal Artery Scan 01/07/23 08:10 Pulse 96 H 01/07/23 08:10 Respiratory Rate 16 01/07/23 08:10 Respiratory Effort Non-Labored, Short of Breath 01/07/23 08:13 Respiratory Depth Normal 01/07/23 08:13 Blood Pressure 158/109 H 01/07/23 08:10 Blood Pressure Position Sitting 01/07/23 08:10 Pulse Oximetry 98 01/07/23 08:10 Oxygen Delivery Method Room Air 01/07/23 08:10 Oxygen Flow Rate 0 01/07/23 08:10 Pain Level 8 01/07/23 08:10 PAWSS Have you Been Recently Intoxicated or Drunk Within the Last 30 days?: No Have you Ever Experienced Previous Episodes of Alcohol Withdrawal?: No Have you ever Experienced Withdrawal Seizures?: No Have you ever Experienced Delirium Tremens(DT)s?: No Have you ever undergone Alcohol Rehabilitation Treatment (i.e, inpt ot outpatient treatment programs)?: No Have you ever Experienced Blackouts?: No Have you ever Combined Alcohol with other Downers within the last 90 days?: No Have you ever Combined Alcohol with any other Substance of Abuse during the last 90 days?: No Result: 0
== END 2023-01-07 11:36 | disposition home or self-care (01) ==
PROVIDERS: Emergency Provider Physician Assistant; PCP Nurse Practitioner Family
DX: R07.9 Chest pain, unspecified (principal); R05.9 Cough, unspecified
CPT/HCPCS: 71250; 99284; 71046

== ENCOUNTER 2023-01-15 11:32 | Outpatient (CLI) | payer MEDICAID, SELFPAY ==
[2023-01-15 12:18] LABS: Abs Immature Grans 0.06 10^3/uL (0.0-0.06); Absolute Basophil Count 0.07 10^3/uL (0.0-0.2); Absolute Lymphocyte Count 1.34 10^3/uL (1.2-3.4); Absolute Monocyte Count 0.93 10^3/uL (0.1-0.8); Absolute Neutrophil Count 8.11 10^3/uL (1.2-6.7); Basophils % 0.7; Eosinophils % 0.9; HCT 48.9 % (36.0-46.0); HGB 17.1 g/dL (11.2-15.7); Immature Grans % 0.6; Lymphocytes % 12.6; MCH 37.1 pg (27.0-33.0); MCV 106 fL (80-95); MPV 9.7 fL (8.0-11.0); Monocytes % 8.8; Neutrophils % 76.4; Platelet Count 319 10^3/uL (130-400); RBC 4.61 10^6/uL (3.93-5.22); RDW 12.7 % (11.7-14.6); RDW-SD 49.9 fL; WBC 10.61 10^3/uL (4.4-10.8)
[2023-01-15 13:24] LABS: ALT 95 U/L (14-59); AST 162 U/L (15-37); Albumin 4.5 g/dL (3.4-5.0); Alkaline Phosphatase 117 U/L (46-116); Anion Gap 10.5 mmol/L (3-11); BUN 15 mg/dL (7-18); Bilirubin, Total 0.5 mg/dL (0.2-1.0); CO2 28.5 mmol/L (21.0-32.0); CREATININE 0.7 mg/dL (0.55-1.02); Calcium 9.3 mg/dL (8.5-10.1); Chloride 102 mmol/L (98-107); Estimated GFR 111.36 (mL/min/1.73m2); Glucose 89 mg/dL (74-106); Potassium 3.5 mmol/L (3.5-5.1); Sodium 141 mmol/L (136-145); Total Protein 8.5 g/dL (6.4-8.2)
[2023-01-16 08:29] LABS: Magnesium 2.1 mg/dL (1.8-2.4)
[2023-01-16 08:44] LABS: Lab Add On Test DONE
[2023-01-16 09:55] LABS: HIV-1/2 Ag & Ab Screen Negative (Negative)
[2023-01-16 10:06] LABS: Hepatitis A Antibody IgM Negative (Negative); Hepatitis B Core Antibody Negative (Negative); Hepatitis B surface Ag Negative (Negative); Hepatitis C Ab w Rflx HCV PCR Negative (Negative)
[2023-01-17 14:06] LABS: Coag FactorVIII Activity Assay 192 % (55 - 200); von Willebrand Factor Activity 139 % (55 - 200); von Willebrand Factor Ag 168 % (55 - 200)
[2023-01-17 18:24] LABS: Erythropoietin 5.9 mIU/mL (2.6 - 18.5)
[2023-01-24 12:07] LABS: JAK2 Result see interpretation
== END 2023-01-15 11:33 | disposition home or self-care (01) ==
LOC: LOS 11:32
PROVIDERS: Family Medicine; PCP Nurse Practitioner Family; Referring Provider Nurse Practitioner Family; Visit Provider Nurse Practitioner Family
DX: Z00.00 Encounter for general adult medical examination without abnormal findings (principal); D75.1 Secondary polycythemia
CPT/HCPCS: 36415; 80053; 82668; 85240; 85246; 85390; 85397; 86704; 86709; 86803; 87340; 87389; 81270; 82746; 83735; 85025

== ENCOUNTER 2023-01-15 12:20 | Outpatient (REF) | payer MEDICAID, SELFPAY ==
--- NOTE | 2023-01-15 11:50 | PAPFT_PTH ---
PATIENT: Shellie Schmid LOC: [facility] U#:[id number] AGE/SX: 42/F ROOM: RE01/15/[address]: MARIA FERNANDA Dorman : 1980 BED: DIS: 01/15/2023 SPEC #: [id number] RECD: 01/16/23 12:42 STATUS: ERICA REQ #: [id number] OLAF: 01/15/23 11:[address]: Pauline Wagner DEPT: [facility] Cytology RECD BY: Ronda Laureano Tissues: 1 - CX/ENDOCX FOR PAP SMEARS Procedures: PAP THIN PREP/UVM Screening HPV DNA PROBE Comments: [id number] (HPV 16 & 18/45) (CHLAMYDIA/GC)
[2023-01-17 13:33] LABS: Chlamydia Result Negative (Negative); GC Result Negative (Negative)
== END 2023-01-15 12:21 | disposition home or self-care (01) ==
LOC: LBN 12:20
PROVIDERS: PCP Nurse Practitioner Family; Visit Provider Nurse Practitioner Family
DX: R87.810 Cervical high risk human papillomavirus (HPV) DNA test positive (principal)
CPT/HCPCS: 87491; 87591; 88142; 87624

== ENCOUNTER → 2023-02-05 01:26 | Outpatient (CLI) | payer MEDICAID, SELFPAY ==
--- NOTE | 2023-02-05 07:30 | DI.MAMMO_ITS ---
Exam(s) MAMMO DIAGNOSTIC BI EXAM: MAMMO DIAGNOSTIC BI CLINICAL HISTORY: nodule found on ct,lump n63.0 TECHNIQUE: Mammograms were interpreted according to the usual protocol including computer analysis w [employer] CAD system, tomosynthesis and C-view imaging. COMPARISON: 26 January and 02 March 2020, December [address] 07 January 2023 FINDINGS: The breasts are composed of heterogeneously dense fibroglandular densities, Breast Density category C . Again noted is a circumscribed nodule in the upper outer quadrant left breast with biopsy marker. Th is is the nodule seen on recent CT. It is unchanged in size and appearance. No new suspicious yeny s or suspicious microcalcifications are seen. No skin thickening or abnormal axillary lymph nodes are seen. There has been no significant change from prior exams. IMPRESSION: BI-RADS Cat 2 - Benign Findings Yearly screening mammography is recommended. Breast Density Category C, heterogeneously Dense. The mammogram demonstrates the patient's breast tissue is dense. Dense breast tissue is very common a nd is not abnormal but dense breast tissue can make it harder to find cancer on a mammogram. Also, de nse breast tissue may increase breast cancer risk. This information about the result of the mammogram report was provided to the patient to raise their awareness. Use this report when you speak with the patient about their risks for breast cancer, which includes their family history. At that time, you may recommend additional screening tests (Ultrasound or MRI) as they might be useful based on their r isk. A negative radiographic report should not delay biopsy if a dominant or clinically suspicious mass is present. Up to ten percent of cancers are not identified on mammography. A negative report may reinforce clinical impression. Adenosis and dense breasts may obscure an underlying neoplasm. False positive reports average 6 to 10%.
== END ==
PROVIDERS: PCP Nurse Practitioner Family; Visit Provider Nurse Practitioner Family
DX: R92.8 Other abnormal and inconclusive findings on diagnostic imaging of breast (principal); Z12.31 Encounter for screening mammogram for malignant neoplasm of breast
CPT/HCPCS: 77062; 77066; G0279

== ENCOUNTER 2023-02-18 15:39 | Outpatient (REF) | payer MEDICAID, SELFPAY ==
--- NOTE | 2023-02-18 14:13 | CER_PTH ---
PATIENT: Shellie Schmid LOC: [facility] U#:[id number] AGE/SX: 42/F ROOM: RE02/18/[address]: Alisa Hernandez MD : 1980 BED: DIS: 02/18/2023 SPEC #: [id number] RECD: 02/18/23 18:10 STATUS: ERICA REQ #: [id number] OLAF: 02/18/23 14:[address]: Alisa Hernandez DEPT: Surgical Specimen RECD BY: Ronda Laureano ENTERED: 02/18/23 18:11 SP TYPE: CER JAN DR: MARIA FERNANDA Dorman Tissues: 1 - CERVICAL BIOPSY Procedures: GROSS AND MICRO LEVEL 4 Comments: [id number]
== END 2023-02-18 15:40 | disposition home or self-care (01) ==
LOC: LBN 15:39
PROVIDERS: PCP Nurse Practitioner Family; Visit Provider Obstetrics & Gynecology
DX: R87.810 Cervical high risk human papillomavirus (HPV) DNA test positive (principal); N88.8 Other specified noninflammatory disorders of cervix uteri
CPT/HCPCS: 88305

== ENCOUNTER 2023-04-17 13:15 | Outpatient (RCR) | payer MEDICAID, SELFPAY ==
--- NOTE | 2023-04-17 13:15 | HOLTER_ITS ---
APPROVED REPORT Conclusion This is a 48-hour Holter monitor ordered for tachycardia Rhythm throughout was sinus. Average heart rate was 96. Minimum was 65, maximum 144 There are occasional ventricular ectopic beats, rare couplets, no ventricular tachycardia There were very rare isolated atrial premature beats There was no atrial fibrillation, no high-grade AV block, no SVT, no pauses greater than 3 seconds
== END 2023-04-29 23:59 | disposition home or self-care (01) ==
LOC: CARDOPNVT 13:15
PROVIDERS: PCP Nurse Practitioner Family; Visit Provider Nurse Practitioner Family
DX: R00.0 Tachycardia, unspecified (principal)
CPT/HCPCS: 93225; 93226

== ENCOUNTER 2023-06-09 09:25 | Outpatient (CLI) | payer MEDICAID, SELFPAY ==
[2023-06-09 12:20] LABS: Abs Immature Grans 0.03 10^3/uL (0.0-0.06); Absolute Basophil Count 0.05 10^3/uL (0.0-0.2); Absolute Eosinophil Count 0.06 10^3/uL (0.0-0.7); Absolute Lymphocyte Count 0.99 10^3/uL (1.2-3.4); Absolute Neutrophil Count 5.31 10^3/uL (1.2-6.7); Basophils % 0.7; Eosinophils % 0.8; HCT 45.5 % (36.0-46.0); HGB 15.7 g/dL (11.2-15.7); Immature Grans % 0.4; Lymphocytes % 13.7; MCH 36.3 pg (27.0-33.0); MCHC 34.5 % (32.0-36.0); MCV 105 fL (80-95); MPV 10.2 fL (8.0-11.0); Neutrophils % 73.4; Platelet Count 300 10^3/uL (130-400); RBC 4.32 10^6/uL (3.93-5.22); RDW 12.9 % (11.7-14.6); RDW-SD 50.4 fL; WBC 7.24 10^3/uL (4.4-10.8)
[2023-06-09 12:39] LABS: Anion Gap 13.2 mmol/L (3-11); BUN 7 mg/dL (7-18); CO2 25.8 mmol/L (21.0-32.0); CREATININE 0.8 mg/dL (0.55-1.02); Calcium 9.3 mg/dL (8.5-10.1); Chloride 100 mmol/L (98-107); Estimated GFR 94.28 (mL/min/1.73m2); Glucose 136 mg/dL (74-106); Potassium 3.3 mmol/L (3.5-5.1); Sodium 139 mmol/L (136-145)
[2023-06-10 07:08] LABS: Lab Add On Test DONE
[2023-06-10 07:29] LABS: ALT 72 U/L (14-59); AST 76 U/L (15-37); Albumin 4.2 g/dL (3.4-5.0); Alkaline Phosphatase 86 U/L (46-116); Total Protein 8.2 g/dL (6.4-8.2)
== END 2023-06-09 09:26 | disposition home or self-care (01) ==
LOC: LOS 09:25
PROVIDERS: PCP Nurse Practitioner Family; Referring Provider Nurse Practitioner Family; Visit Provider Nurse Practitioner Family
DX: I10 Essential (primary) hypertension (principal); D75.1 Secondary polycythemia; F10.20 Alcohol dependence, uncomplicated
CPT/HCPCS: 36415; 80048; 82040; 84075; 84155; 84450; 84460; 85025

== ENCOUNTER 2023-10-10 10:41 | Outpatient (CLI) | payer MEDICAID, SELFPAY ==
[2023-10-10 12:13] LABS: Abs Immature Grans 0.01 10^3/uL (0.0-0.06); Absolute Basophil Count 0.05 10^3/uL (0.0-0.2); Absolute Eosinophil Count 0.14 10^3/uL (0.0-0.7); Absolute Monocyte Count 0.73 10^3/uL (0.1-0.8); Absolute Neutrophil Count 3.79 10^3/uL (1.2-6.7); Basophils % 0.8; Eosinophils % 2.3; HCT 42.9 % (36.0-46.0); Immature Grans % 0.2; Lymphocytes % 24.1; MCH 37.1 pg (27.0-33.0); MCV 106 fL (80-95); MPV 10.4 fL (8.0-11.0); Monocytes % 11.7; Neutrophils % 60.9; Platelet Count 224 10^3/uL (130-400); RBC 4.04 10^6/uL (3.93-5.22); RDW 12.2 % (11.7-14.6); RDW-SD 47.9 fL; WBC 6.22 10^3/uL (4.4-10.8)
[2023-10-10 12:52] LABS: ALT 109 U/L (14-59); AST 114 U/L (15-37); Albumin 4.3 g/dL (3.4-5.0); Alkaline Phosphatase 76 U/L (46-116); Anion Gap 12.9 mmol/L (3-11); BUN 7 mg/dL (7-18); Bilirubin, Total 0.9 mg/dL (0.2-1.0); CO2 25.1 mmol/L (21.0-32.0); CREATININE 0.6 mg/dL (0.55-1.02); Calcium 9.4 mg/dL (8.5-10.1); Calculated LDL 147 mg/dL (<100); Chloride 103 mmol/L (98-107); Cholesterol 233 mg/dL (<200); Estimated GFR 114.86 (mL/min/1.73m2); Folate 4.1 ng/mL (8.6-20.0); Glucose 97 mg/dL (74-106); HDL Cholesterol 70 mg/dL (40-60); Sodium 141 mmol/L (136-145); Total Protein 7.6 g/dL (6.4-8.2); Triglyceride 83 mg/dL (<150)
== END 2023-10-10 10:42 | disposition home or self-care (01) ==
LOC: LOS 10:42
PROVIDERS: PCP Nurse Practitioner Family; Referring Provider Nurse Practitioner Family; Visit Provider Nurse Practitioner Family
DX: D75.1 Secondary polycythemia (principal); I10 Essential (primary) hypertension; E78.5 Hyperlipidemia, unspecified; F10.20 Alcohol dependence, uncomplicated; E53.8 Deficiency of other specified B group vitamins; R79.89 Other specified abnormal findings of blood chemistry
CPT/HCPCS: 36415; 80053; 80061; 82746; 83036; 85025

== ENCOUNTER 2024-01-19 02:10 | Outpatient (CLI) | payer MEDICAID, SELFPAY ==
[2024-01-19 11:39] LABS: HCT 43.3 % (36.0-46.0); HGB 15.3 g/dL (11.2-15.7); MCH 37.7 pg (27.0-33.0); MCHC 35.3 % (32.0-36.0); MCV 107 fL (80-95); MPV 9.8 fL (8.0-11.0); Platelet Count 254 10^3/uL (130-400); RBC 4.06 10^6/uL (3.93-5.22); RDW 12.4 % (11.7-14.6); RDW-SD 48.8 fL; WBC 8.33 10^3/uL (4.4-10.8)
[2024-01-19 13:12] LABS: ALT 67 U/L (14-59); AST 80 U/L (15-37); Albumin 3.8 g/dL (3.4-5.0); Alkaline Phosphatase 88 U/L (46-116); Anion Gap 8.9 mmol/L (3-11); BUN 10 mg/dL (7-18); Bilirubin, Total 0.69 mg/dL (0.2-1.0); CO2 29.1 mmol/L (21.0-32.0); CREATININE 0.8 mg/dL (0.55-1.02); Calcium 9.4 mg/dL (8.5-10.1); Chloride 101 mmol/L (98-107); Estimated GFR 94.28 (mL/min/1.73m2); Ferritin 324 ng/mL (8-252); Folate 18.2 ng/mL (8.6-20.0); Glucose 144 mg/dL (74-106); Potassium 3.9 mmol/L (3.5-5.1); Sodium 139 mmol/L (136-145); Total Protein 7.2 g/dL (6.4-8.2); Vitamin B12 680 pg/mL (193-986)
== END 2024-01-19 02:11 | disposition home or self-care (01) ==
LOC: LBO 02:11
PROVIDERS: PCP Nurse Practitioner Family; Visit Provider Nurse Practitioner Family
DX: F10.20 Alcohol dependence, uncomplicated (principal)
CPT/HCPCS: 36415; 80053; 85027; 82607; 82728; 82746

== ENCOUNTER 2024-04-20 19:36 | Outpatient (REF) | payer MEDICAID, SELFPAY ==
--- NOTE | 2024-04-20 12:01 | PAPFT_PTH ---
PATIENT: Shellie Schmid LOC: [facility] U#:[id number] AGE/SX: 43/F ROOM: RE04/20/[address]: Indu Richards NP : 1980 BED: DIS: 04/20/2024 SPEC #: [id number] RECD: 04/21/24 12:58 STATUS: ERICA REQ #: [id number] OLAF: 04/20/24 12:[address]: Indu Richards DEPT: [facility] Cytology RECD BY: Ronda Laureano ENTERED: 04/21/24 12:59 SP TYPE: PAPFT OT DR: Pauline Wagner, PILING SETTER Tissues: 1 - CX/ENDOCX FOR PAP SMEARS Procedures: PAP THIN PREP/UVM Screening HPV DNA PROBE Comments: [id number] (HPV 16 & 18/45)
== END 2024-04-20 19:37 | disposition home or self-care (01) ==
LOC: LBN 19:36
PROVIDERS: PCP Nurse Practitioner Family; Visit Provider Nurse Practitioner Family
DX: Z00.00 Encounter for general adult medical examination without abnormal findings (principal); F90.9 Attention-deficit hyperactivity disorder, unspecified type; F43.10 Post-traumatic stress disorder, unspecified; F41.1 Generalized anxiety disorder; F41.0 Panic disorder [episodic paroxysmal anxiety]; F32.3 Major depressive disorder, single episode, severe with psychotic features; F10.20 Alcohol dependence, uncomplicated; I10 Essential (primary) hypertension; E78.5 Hyperlipidemia, unspecified; F17.210 Nicotine dependence, cigarettes, uncomplicated
CPT/HCPCS: 88142; 87624

== ENCOUNTER 2024-05-28 12:40 | Emergency (ER) | payer MEDICAID, SELFPAY ==
[2024-05-28 12:49] VITALS: BP 154/98; PULSE 107; TEMP 36.5; O2SAT 97
[2024-05-28 13:31] VITALS: PULSE 95; O2SAT 100
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
[2024-05-28 13:57] VITALS: BP 152/103; PULSE 95; RESP 17; O2SAT 99
== END 2024-05-28 14:00 | disposition home or self-care (01) ==
PROVIDERS: Emergency Provider Emergency Medicine; PCP Nurse Practitioner Family
DX: R22.32 Localized swelling, mass and lump, left upper limb (principal); F17.210 Nicotine dependence, cigarettes, uncomplicated
CPT/HCPCS: 99283

== ENCOUNTER 2024-06-02 01:35 | Outpatient (CLI) | payer MEDICARE, MEDICAID, SELFPAY ==
--- NOTE | 2024-06-02 12:30 | DI.US_ITS ---
Exam(s) US AXILLA LT EXAM: US AXILLA LT CLINICAL HISTORY: left axillary lump, suspected Hidradenitis suppur N63.32 LUMP AXILLARY TAIL TECHNIQUE: Ultrasound left axilla performed using standard protocol. COMPARISON: CT CT CHEST WO from 01/07/2023 FINDINGS: Ovoid subcutaneous low-density collection noted in the axilla corresponding to the palpable abnormali ty. It measures 2.3 by 0.6 x 2.4 cm. No internal vascularity but surrounding hyperemia. Normal nicola earing adjacent lymph node measuring 8 millimeters in greatest dimension. IMPRESSION: Low-density subcutaneous collection corresponding to the palpable abnormality, consistent with hidrad enitis suppurativa. DATA REPOSITORY:
== END 2024-06-02 01:55 ==
LOC: DI 01:35
PROVIDERS: PCP Nurse Practitioner Family; Visit Provider Nurse Practitioner Family
DX: N63.32 Unspecified lump in axillary tail of the left breast (principal); L73.2 Hidradenitis suppurativa
CPT/HCPCS: 76642

== ENCOUNTER → 2024-07-05 11:28 | Outpatient (BNVA) | payer MEDICARE, MEDICAID, SELFPAY | PROVIDERS: PCP Family Medicine; Referring Provider Family Medicine; Visit Provider Surgery | DX: L73.2 Hidradenitis suppurativa (principal); F17.210 Nicotine dependence, cigarettes, uncomplicated | CPT/HCPCS: 99214; 96372; J3301 ==

== ENCOUNTER 2024-10-26 00:32 | Outpatient (CLI) | payer MEDICARE, MEDICAID, SELFPAY ==
[2024-10-26 11:28] LABS: ALT 48 U/L (14-59); AST 62 U/L (15-37); Alkaline Phosphatase 89 U/L (46-116); Anion Gap 12.7 mmol/L (3-11); BUN 7 mg/dL (7-18); Bilirubin, Total 0.7 mg/dL (0.2-1.0); CO2 27.3 mmol/L (21.0-32.0); CREATININE 0.7 mg/dL (0.55-1.02); Calcium 9.2 mg/dL (8.5-10.1); Chloride 103 mmol/L (98-107); Estimated GFR 109.98 (mL/min/1.73m2); Glucose 123 mg/dL (74-106); Potassium 3.2 mmol/L (3.5-5.1); Sodium 143 mmol/L (136-145); Total Protein 7.6 g/dL (6.4-8.2)
== END 2024-10-26 00:33 | disposition home or self-care (01) ==
LOC: LBO 00:32
PROVIDERS: PCP Family Medicine; Visit Provider Family Medicine
DX: I10 Essential (primary) hypertension (principal); Z00.00 Encounter for general adult medical examination without abnormal findings
CPT/HCPCS: 36415; 80053

== ENCOUNTER 2025-01-28 18:50 | Outpatient (REF) | payer MEDICARE, SELFPAY ==
[2025-01-28 14:19] LABS: Anion Gap 10.2 mmol/L (3-11); BUN 8 mg/dL (7-18); CO2 29.8 mmol/L (21.0-32.0); Calcium 9.5 mg/dL (8.5-10.1); Chloride 102 mmol/L (98-107); Estimated GFR 114.15 (mL/min/1.73m2); Glucose 81 mg/dL (74-106); Potassium 4.0 mmol/L (3.5-5.1); Sodium 142 mmol/L (136-145)
== END 2025-01-28 18:51 | disposition home or self-care (01) ==
LOC: LBN 18:50
PROVIDERS: PCP Family Medicine; Visit Provider Family Medicine
DX: I10 Essential (primary) hypertension (principal)
CPT/HCPCS: 80048

== ENCOUNTER 2025-06-03 13:12 | Outpatient (REF) | payer MEDICARE, SELFPAY ==
--- NOTE | 2025-06-03 10:10 | PAPFT_PTH ---
PATIENT: Shellie Schmid LOC: [facility] U#:[id number] AGE/SX: 45/F ROOM: RE06/03/[address]: Flower Gonsalez : 1980 BED: DIS: 06/03/2025 SPEC #: [id number] RECD: 06/03/25 18:23 STATUS: ERICA RESweta #: [id number] OLAF: 06/03/25 10:[address]: Flower Gonsalez DEPT: [facility] Cytology RECD BY: Ronda Laureano Tissues: 1 - CX/ENDOCX FOR PAP SMEARS Procedures: PAP THIN PREP/UVM Screening HPV DNA PROBE Comments: [id number] (HPV 16 & 18/45) (CHLAMYDIA/GC)
[2025-06-06 12:02] LABS: Chlamydia Result Negative (Negative); GC Result Negative (Negative)
== END 2025-06-03 13:13 | disposition home or self-care (01) ==
LOC: LBN 13:12
PROVIDERS: PCP Family Medicine; Visit Provider Family Medicine
DX: Z12.4 Encounter for screening for malignant neoplasm of cervix (principal)
CPT/HCPCS: 87491; 87591; 88142; 87624